=== PATIENT | male | born 1970 | race Caucasian/White ===

== ENCOUNTER 2017-08-28 17:00 | Inpatient (IN) ==
[2017-08-28] MEDS ORDERED: Heparin 10,000 UNITS/10 ML Vial (for IV use) IV.PUSH STA (17:58)
[2017-08-28] MEDS ORDERED: Sod Chloride 0.9% Inj 1,000 ML IV.SIG SCH (18:00)
--- NOTE | 2017-08-28 18:08 | ED ---
HPI General Chief complaint: Chest Pain Stated complaint: chest pain/passed out/arm tingling Time Seen by Provider: 08/28/17 17:58 History of Present Illness HPI narrative: Patient is a 46-year-old 2 pack per day smoker history of hypertension on lisinopril presents emergency department with intermittent chest discomfort since about 1330 this afternoon. 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 His came to get him and brought him to the emergency department. Patient initially brought in through the waiting room, an EKG was performed and was handed to me which did show inferior OR and a STEMI alert was activated. Patient does not have a ranger aide, has never had a cardiac catheterization before. No recent surgeries. No history of diabetes or hyperlipidemia peer Onset (ago): hour(s) Location: chest Radiation: non-radiation Quality: other (Heavy) Associated symptoms: other (Loss of consciousness, diaphoresis) Related Data Allergies Allergy/AdvReac Type Severity Reaction Status Date / Time No Known Allergies Allergy Unverified 08/28/17 17:44 Review of Systems Except as stated in HPI: all other systems reviewed are negative [facility] Medical History Medical History Hypertension (Acute) Obesity (Acute) Social History Social History Substance History: No History of Abuse Second Hand Smoke Exposure: No Smoking Status: Heavy tobacco smoker Tobacco Type: Cigarettes How Often Do You Have a Drink Containing Alcohol: Never Recent Travel in [facility] within the Last 8 Weeks: No Recent Out of Country Travel within the Last 8 Weeks: No Exam Narrative Exam Narrative: GENERAL: Well-developed well-nourished no obvious distress, morbidly obese. SKIN: Focused skin assessment warm/clammy. HEAD: Atraumatic. Normocephalic. EYES: Pupils equal and round. No scleral icterus. No injection or drainage. ENT: No nasal bleeding or discharge. Mucous membranes pink and moist. NECK: Trachea midline. No JVD. CARDIOVASCULAR: Regular rhythm. No murmur appreciated. 2+ bilateral equal pulses in all 4 extremities, no murmurs gallops or rubs. Mildly tachycardic peer RESPIRATORY: No accessory muscle use. Clear to auscultation. Breath sounds equal bilaterally. GASTROINTESTINAL: Abdomen soft, non-tender, nondistended. Hepatic and splenic margins not palpable. MUSCULOSKELETAL: No obvious deformities. No clubbing. No cyanosis. No edema. NEUROLOGICAL: Awake and alert. No obvious cranial nerve deficits. Motor grossly within normal limits. Normal speech. PSYCHIATRIC: Appropriate mood and affect; insight and judgment normal. Course Hospital Course: Patient room emergently, at 1803 Dr. Engel was consulted I spoke to him directly and he is in route, patient ready to roll to the Automation Technician at 1807. Full dose aspirin was given, 7000 units of heparin, reviewed his chest x-ray which does show cardiomegaly. Hemodynamically he is very hypertensive nitroglycerin was given sublingually, oxygen started. he states currently he is chest pain-free peer Initial Documented Vital Signs Temperature 97.7 F 08/28/17 17:36 Pulse Rate 109 H 08/28/17 17:36 Respiratory Rate 20 08/28/17 17:36 Blood Pressure 194/120 H 08/28/17 17:36 Pulse Oximetry 98 08/28/17 17:36 Last Documented Vital Signs Temperature 97.7 F 08/28/17 17:36 Pulse Rate 109 H 08/28/17 17:36 Respiratory Rate 20 08/28/17 17:36 Blood Pressure 194/120 H 08/28/17 17:36 Pulse Oximetry 98 08/28/17 18:12 Critical Care Time Critical Care Time: Yes Total Critical Care Time: 35 Attestation: Aggregate critical care time was 35 minutes. Time to perform other separately billable procedures was not included in the critical care time. My time did not include minutes spent treating any other patients simultaneously or on activities that did not directly contribute to the patient's treatment. The services I provided to this patient were to treat and/or prevent clinically significant deterioration that could result in: , disability, organ failure I provided critical care services requiring my management, as noted below: Chart data review, documentation time, medication orders and management, vital sign assessments/reviewing monitor data, ordering and reviewing lab tests, ordering and interpreting/reviewing x-rays and diagnostic studies, care of the patient and discussion of the patient with the admitting physicians. Medical Decision Making MDM Narrative Medical decision making narrative: MDM: High, EKG shows significant ST elevations in 2 3 and aVF with reciprocal depressions in V1 and V2. There are Q waves starting to form in the inferior leads as well. He actually appears fairly comfortable. 1827: Cath team assembled, Patient rolling to chemistry lab instructor. Differential Diagnosis Differential Diagnosis: Acute STEMI, dissection unlikely, thoracic aneurysm unlikely, congestive heart failure unlikely. Lab Data Result diagrams: 08/28/17 18:00 08/28/17 18:00 Discharge Plan Discharge Disposition Patient Disposition: 30 Still Patient Physicians Team ED Provider: Denis Valenzuela Primary Care Provider: Darren Bear Discharge Instructions Patient Printed Instructions: Chest Pain (ED) Discharge Interventions Interventions: Vital Signs Last Done: 08/28/17 17:36 Status ED Status: With Doctor
[2017-08-28] MEDS ORDERED: Heparin/NS PF Inj 500 ML ONE (18:09)
[2017-08-28] MEDS ORDERED: Heparin 10,000 UNITS/10 ML Vial (for IV use) ONE (18:10)
[2017-08-28] MEDS ORDERED: fentaNYL Citrate Inj 100 MCG/2 ML Ampul ONE (18:10)
[2017-08-28 18:33] LABS: Baso # (Auto) 0.1 th/mm3 (0.0-0.2); Baso % (Auto) 0.7 % (0.0-2.0); Eos % (Auto) 0.1 % (0.0-4.0); Hematocrit 50.3 % (39.0-51.0); Hemoglobin 17.5 gm/dL (13.0-17.0); Lymph # (Auto) 2.1 th/mm3 (1.0-4.8); Lymph % (Auto) 17.6 % (9.0-44.0); Mean Corpuscular HGB Conc 34.7 % (32.0-36.0); Mean Corpuscular Hemoglobin 31.6 pg (27.0-34.0); Mean Platelet Volume 10.4 fL (7.0-11.0); Mono # (Auto) 0.5 th/mm3 (0.0-0.9); Mono % (Auto) 4.3 % (0.0-8.0); Neut # (Auto) 9.3 th/mm3 (1.8-7.7); Neut % (Auto) 77.3 % (16.0-70.0); Platelet Count 171 th/mm3 (150-450); Red Blood Count 5.53 mil/mm3 (4.50-5.90); Red Cell Distribution Width 13.7 % (11.6-17.2)
[2017-08-28] MEDS ORDERED: Lidocaine PF 1% Inj 30 ML Vial ONE (18:39)
--- NOTE | 2017-08-28 18:39 | XR ---
EXAM DATE: 08/28/2017 6:21 PM EDT AGE/SEX: 46 years / Male INDICATIONS: Code STEMI. Chest pain. CLINICAL DATA: This is the patient's initial encounter. Patient reports that signs and symptoms have been present for 1 day and indicates a pain score of 9/10. MEDICAL/SURGICAL HISTORY: None. None. COMPARISON: No prior exams available for comparison. FINDINGS: The heart is mildly prominent. The pulmonary vascular pattern is normal. The lungs are clear. CONCLUSION: 1. Mild cardiomegaly. 2. No pulmonary vascular congestion or focal pulmonary infiltrate. Electronically signed by: Denis Dow MD 08/28/2017 6:38 PM EDT
[2017-08-28 18:42] LABS: Activated Partial Thrombo Time 28.2 sec (24.3-30.1); Prothrombin Time 9.8 sec (9.8-11.6)
[2017-08-28] MEDS ORDERED: Cangrelor Inj 50,000 MCG Vial ONE (18:57)
[2017-08-28 19:08] LABS: Calcium 8.7 mg/dL (8.5-10.1); Carbon Dioxide 23.5 meq/L (21.0-32.0); Magnesium 2.1 mg/dL (1.5-2.5)
[2017-08-28 19:09] LABS: Potassium 5.2 meq/L (3.5-5.1)
[2017-08-28 19:22] LABS: Creatine Kinase MB 17.1 ng/mL (0.5-3.6)
[2017-08-28] MEDS ORDERED: Lidocaine 1% Inj 50 ML Vial INFILTRATN PRN (19:22)
[2017-08-28] MEDS ORDERED: Misc Info for Pharmacy OTHER STA (19:22)
[2017-08-28] MEDS ORDERED: Acetaminophen 325 MG Tablet PO PRN (19:22)
[2017-08-28] MEDS ORDERED: Sodium Chlor 0.9% Inj 250 ML IV.SIG ONE (19:22)
[2017-08-28] MEDS ORDERED: Bacitracin Oint 0.9 GM Packet TOPICAL ONE (19:22)
[2017-08-28] MEDS ORDERED: Atropine Inj 1 MG/ML Vial IV.PUSH PRN (19:22)
[2017-08-28] MEDS ORDERED: Heparin Drip 25,000 UNIT/250 ML BAG IV.CONT PRN (19:27)
--- NOTE | 2017-08-28 19:33 | CATHPROC ---
[employer] HIS Report Study Information Study Number Admission Scheduled Start Study Start [id number] Aug 28 2017 5:00PM 08/28/2017 Aug 28 2017 6:15PM [place] [facility] Cardiac Catheterization Admit Source Facility Department Emergency department [facility] - Building Carpenter Physician and Clinical Staff Initial Ti Howell Medical Charge Entry Specialist Bela Martinez,RN Medical Charge Entry Specialist Bela Pan,RT(R) Other Chikis Oliveros,TRAE Recorder Daiana Cornelius ,SHARONN Scrub Mery Acosta,MANAGER RISK MANAGEMENT TECH2 Procedures Performed Procedure Location (Site) Vessel Name Coronary Angiograms LCA Left Coronary Coronary Angiograms RCA Right Coronary L Heart Cath Pacemaker Temp Fem Vein (right) Femoral Vein PTCA RCA Dist Right Coronary PTCA RCA Mid Right Coronary Stent RCA Mid Right Coronary Wire insertion Radial (right) Radial Art. Equipment Time Furniture Technician Description Size Mfg Part Number Used/Scraped COPILOT VALVE, BLEEDBACK [id number] 18:45 [employer] Used CONTROL *[id number] CATHETER, FR5 SWAN ROCÍO 18:54 PERDOMO LINDSEY FR 5 [id number] *[id number] Used MONITOR [id number] 18:53 PER[employer] LINDSEY PACING CATHETER J CURVE FR 5 Used *[id number] TRANSDUCER, TRUWAVE [id number] 18:43 PERDOMO LINDSEY * Used W/STOCKCOCK *[id number] 19:17 [facility] MEDICAL VASCADE, FR5 CLOSURE SYSTEM FR 5 Used *[id number] *[id number] [id number] *[id number] [id number] *[id number] *[id number] 18:43 [employer] BLANKET,WARM AIR CCL * Used *[id number] 18:43 [employer] PACK, CCL CUSTOM * Used *[id number] 18:43 [employer] SUPPORT, ARTERIAL ADULT 63437 *[id number] Used [id number] 18:43 [employer] PACER PEN, SKIN DUAL W/ RULER * Used *[id number] 18:55 [employer] BALLOON, 2.5 X 15MM EUPHORA 15MM Used *[id number] 19:08 [employer] STENT, 3.0 30 INTEGRITY 3.0 30 Used *[id number] 19:13 [employer] STENT, 3.0 30 INTEGRITY 3.0 30 Used *5642606 [id number] 18:59 [employer] MEDICAL 30 RAY INDEFLATOR Used *[id number] BAND, RADIAL COMPRESSION TR [id number] 19:23 [employer] MEDICAL 29CM Used LARGE 29 *[id number] SHEATH, FR6 RADIAL PRELUDE 18:43 [employer] MEDICAL FR 6 [id number] Used EASE 11CM [id number] 18:43 [employer] WIRE, EXCHANGE 260CM 3MMJ 260CM Used *[id number] 18:43 [employer] MANIFOLD, 4 PORT * Used *[id number] 18:43 [employer] OMNIPAQUE, 350 MG, 150ML 150ML [id number] Used 18:48 [employer] OMNIPAQUE, 350 MG, 50ML 50ML [id number] Used CATHETER, FR4 SPIROFLEX [id number] 19:06 [employer] FR 4 Used ANGIOJET RX *[id number] 18:51 [email or web address] MEDICAL SHEATH, FR5 TERUMO (10CM) FR 5 Used *[id number] WIRE, RUNTHROUGH NS FLOPPY 25-1011 18:45 [employer] MEDICAL 180CM Used .014 180CM *[id number] Equipment Model, Serial, Lot Number and Expiration Data Description Model Number Serial Number Lot Number Expiration Date BAND, RADIAL COMPRESSION TR [id number] 06-22-2020 LARGE 29 STENT, 3.0 30 INTEGRITY [id number] 06-10-2019 STENT, 3.0 30 INTEGRITY [id number] 03-11-2019 History: Allergies Allergy Reaction No Known Allergies History: Risk Factors Family History of Hypertension Dyslipidemia Previous KS Previous Heart Failure Premature CAD No No No No No Prior Valve Prior PCI Prior CABG Surgery No No No Cerebrovascular Peripheral Artery Chronic Lung On Dialysis Diabetes Disease Disease Disease No No No No No Labs Hgb (g/dl) Hct (%) 11.60-17.00 35.00-51.00 17.7 52 Glucose (mg/dl) BUN (mg/dl) Creatinine (mg/dl) BUN:Creatinine (1:x) 74.00-106.00 7.00-18.00 0.50-1.30 10.00-20.00 108 15 1.0 15 Na (meq/l) K (meq/l) 136.00-145.00 3.50-5.10 139 5.3 CPK-MB (ng/ML) 0.50-3.60 Not Drawn Medication Medication Total Dose (Bolus/Oral) Medication Total Dosage/Unit 1% XYLOCAINE 30 mL ASPIRIN 324 mg FENTANYL 50 mcg HEPARIN 39268 units NTG (IC) 200 mcg RADIAL COCKTAIL 2 mL (Bolus) VERSED 2 mg ZOFRAN 4 mg Medications (Bolus/Oral) Medication Time Given Dosage/Unit Administered By Reason HEPARIN 08/28/2017 6:27:14 PM 7000 units 7000 units HEPARIN given pre op via Peripheral IV. prior to track laborer 1% XYLOCAINE 08/28/2017 6:41:56 PM 10 mL Ti Engel 10 mL 1% XYLOCAINE given in lab by Ti Engel via Subcutaneous. Ordered by Ti Engel. VERSED 08/28/2017 6:41:58 PM 2 mg Bela Martinez 2 mg VERSED given in lab by Bela Martinez, TRAE via Peripheral IV. Ordered by Ti Engel. FENTANYL 08/28/2017 6:42:15 PM 50 mcg Bela Martinez 50 mcg FENTANYL given in lab by Bela Martinez, TRAE via Peripheral IV. Ordered by Ti Engel. RADIAL COCKTAIL 08/28/2017 6:43:53 PM 2 mL (Bolus) Ti Engel 2 mL (Bolus) RADIAL COCKTAIL given in lab by Ti Engel via Radial. Using [Solution Name]. Ordere d by Ti Engel. Ntg 200mcg 1% XYLOCAINE 08/28/2017 6:52:03 PM 20 mL Ti Engel 20 mL 1% XYLOCAINE given in lab by Ti Engel in Right Groin via Subcutaneous. Ordered by Ti Engel. HEPARIN 08/28/2017 6:55:15 PM 5000 units Bela Martinez 5000 units HEPARIN given in lab by Bela Martinez, TRAE via Peripheral IV. Ordered by Ti Engel. NTG (IC) 08/28/2017 7:03:42 PM 200 mcg Ti Engel 200 mcg NTG (IC) given in lab by Ti Engel via Intra-coronary. Ordered by Ti Engel. ZOFRAN 08/28/2017 7:06:09 PM 4 mg Chikis Oliveros 4 mg ZOFRAN given in lab by Chikis Oliveros, TRAE via Central IV. Ordered by Ti Engel. ASPIRIN 08/28/2017 7:09:28 PM 324 mg Chikis Oliveros 324 mg ASPIRIN given in lab by Chikis Oliveros, RN via Subcutaneous. Ordered by Ti Engel. in er Medication (Drip) Medication Time Given Dosage/Unit Concentration/Unit Diluent (ml) Solution IV Solutions 08/28/2017 6:39:17 PM 50 mL (IV) NaCl .9 IV Solutions given via Peripheral IV. Pump/Drip Flow using NaCl .9. at O KENGREAL BOLUS 08/28/2017 7:00:19 PM 17 mL 17 mL KENGREAL BOLUS given in lab by Chikis Oliveros, TRAE via Peripheral IV. Ordered by Ti Engel . KENGREAL DRIP 08/28/2017 7:02:07 PM 4 mcg/kg/min 50 mg 250 NaCl .9 4 mcg/kg/min KENGREAL DRIP given in lab by Chikis Oliveros, TRAE via Peripheral IV. Pump/Drip Flow = 13 8.72 ml/hr using NaCl .9 with a concentration of 50 mg in 250 ml. Ordered by Ti Engel. Initial Case Assessment Cardiovascular HR Rhythm NIBP Chest Pain 83 sr 144/105 0 Edema Present Skin color Skin None Normal Warm Dry Circulatory - Right Pulses Dorsalis Pedis Femoral Radial 3 2 2 Scale (0,1,2,3,4,d) Circulatory - Left Pulses Dorsalis Pedis Femoral Radial 3 Scale (0,1,2,3,4,d) Circulatory - Lower Extremities Color Lower Right Color Lower Left Normal Normal Neurological State Oriented to time-place- Alert Moves all extremities person Respiration - General Respiration Rate SpO2 (%) O2 (lpm) (B/min) 17 95 2 Final Case Assessment Cardiovascular HR Rhythm NIBP Chest Pain 70 reg 125/87 0 Edema Present Skin color Skin None Normal Warm Circulatory - Right Pulses Dorsalis Pedis Femoral Radial 3 2 2 Scale (0,1,2,3,4,d) Circulatory - Left Pulses Dorsalis Pedis Femoral Radial 3 Scale (0,1,2,3,4,d) Circulatory - Lower Extremities Color Lower Right Color Lower Left Normal Normal Neurological State Oriented to time-place- Alert Moves all extremities person Respiration - General Respiration Rate SpO2 (%) O2 (lpm) (B/min) 12 97 2 Chronological Log Time Study Chronological Log 18:25:22 Emergency Room notified that Building Carpenter is ready. 18:25:44 MD arrived. 18:27:14 7000 units HEPARIN given pre op via Peripheral IV. prior to track laborer 18::33 Patient arrived via Bed. 18:32:33 Patient Name, D.O.B, / Armband Verified By R.N. 18:32:35 Consent signed by the physician and the patient and verified by the [facility] staff. 18:32:36 Pre-op and post- op instructions given; patient acknowledges understanding of instructions. 18:32:39 Patient has been NPO for More than 6Hrs. 18:32:42 Skin Breakdown- none per patient Vitals capture started with the following parameters, Patient=Adult, Interval=5 min, Initial Pr ajyjga=547 mmHg, 18:38:25 Deflation Rate=5 mmHg, Cuff placed on Right Arm 18:38:36 Reference ECG taken 18:38:54 A # 20 IV was noted in the Antecubital (right). Grade = 0 18:39:01 HR=86 bpm, AITL=202/105 mmhg, SpO2=97.0 %, Resp=12 B/min, Pain=0, Vladislav=10, Serrano=2 18:39:10 A # 20 IV was noted in the Antecubital (left). Grade = 0 18:39:17 IV Solutions given via Peripheral IV. Pump/Drip Flow using NaCl .9. at [facility] Assessment: Initial Case, HR=83 BPM, Rhythm=sr, EEGY=992/105 mmhg, Chest Pain=0, Edema=None, [place]=Normal, Skin = Warm, Dry Right Pulses: Selvin Ped=3, Femoral=2, Radial=2 Left Pulses: Selvin Ped=3 18:39:43 Lower Right Extremities: Color=Normal Lower Left Extremities: Color=Normal Neurological: State=Alert, Ox3, SMART Respiration: Resp=17 B/min, SpO2=95 %, O2=2 lpm 18:40:35 Right Radial and groin(s) prepped with 2% chlorhexidine, and draped after a 3 min. waiting time. Time Out. Correct patient, correct procedure, correct physician, labs, allergies, and equipment verified with track laborer 18:40:56 team present. Fire risk assesment completed (see hard stop sheet for coding). Time Out Conc urred by and individual staff in procedure. 18:41:00 Case Start 18:41:56 10 mL 1% XYLOCAINE given in lab by Ti Engel via Subcutaneous. Ordered by Tran Engel en. 18:41:58 2 mg VERSED given in lab by Bela Martinez, RN via Peripheral IV. Ordered by Ti Engel . 18:42:15 50 mcg FENTANYL given in lab by Bela Martinez, RN via Peripheral IV. Ordered by Pro Engel phen. 18:42:23 Reference ECG taken 18:43:15 Pressure channel 1 zeroed. 18:43:29 Access site was Right Radial Artery. A SHEATH, FR6 RADIAL PRELUDE EASE 11CM FR 6 was advanced into the Radial (right) using the Perc utaneous 18:43:41 technique. 2 mL (Bolus) RADIAL COCKTAIL given in lab by Ti Engel via Radial. Using [Solution Name]. Ordered by Toro 18:43:53 Ti. Ntg 200mcg 18:44:10 GO=192 bpm, WABE=282/49 mmhg, SpO2=96 %, Resp=19 B/min, Pain=0, Vladislav=10, Serrano=2 A JL 3.5 INFINITI CATHETER FR 5 was advanced over a wire. OMNIPAQUE, 350 MG, 150ML 150ML was us ed for 18:45:44 injections. 18:46:58 The LCA was injected and visualized at various angles. OMNIPAQUE, 350 MG, 150ML 150ML used . Recorded Pressure: Ao, HR=97, Condition=Condition 1 18:47:20 (Aorta) Ao 129/94/111 18:48:59 HR=99 bpm, GXVK=772/103 mmhg, SpO2=96.0 %, Resp=14 B/min, Pain=0, Vladislav=10, Serrano=2 After removing the current catheter a JR 5.0 GUIDE CATHETER FR 6 was advanced over a WIRE, EXCH ROBER 260CM 18:50:05 3MMJ 260CM. 18:50:43 The RCA was injected and visualized at various angles. OMNIPAQUE, 350 MG, 150ML 150ML used . 18:52:03 20 mL 1% XYLOCAINE given in lab by Ti Engel in Right Groin via Subcutaneous. Ordered by Ti Engel. 18:53:54 Access site was Right Femoral Vein. 18:54:02 JR=113 bpm, GKLZ=803/99 mmhg, SpO2=98.0 %, Resp=11 B/min A CATHETER, FR5 SWAN ROCÍO MONITOR FR 5 was advanced to the right ventricle. Rate = 60, Output = ~OUTPUT~, 18:54:13 MA = 5. 18:54:55 Lead placement verified under fluoroscopy 18:55:15 5000 units HEPARIN given in lab by Bela Martinez RN via Peripheral IV. Ordered by Ti Engel. A JR 5.0 GUIDE CATHETER FR 6 was advanced over a wire. OMNIPAQUE, 350 MG, 150ML 150ML was used for 18:55:17 injections. 18:56:45 A WIRE, RUNTHROUGH NS FLOPPY .014 180CM 180CM was inserted via Radial (right). 18:57:49 Interventional wire has crossed the lesion-reperfusion A BALLOON, 2.5 X 15MM EUPHORA 15MM was inserted over WIRE, RUNTHROUGH NS FLOPPY .014 180CM 180C M via 18:58:36 the Radial (right). A BALLOON, 2.5 X 15MM EUPHORA 15MM over a WIRE, RUNTHROUGH NS FLOPPY .014 180CM 180CM in the RC A Mid 18:58:45 was inflated using a 30 RAY INDEFLATOR at 8 ray for 10 sec. 18:58:59 TX=503 bpm, KAOP=454/100 mmhg, SpO2=98.0 %, Resp=17 B/min A BALLOON, 2.5 X 15MM EUPHORA 15MM over a WIRE, RUNTHROUGH NS FLOPPY .014 180CM 180CM in the RC A Mid 18:59:06 was inflated using a 30 RAY INDEFLATOR at 8 ray for 5 sec. A BALLOON, 2.5 X 15MM EUPHORA 15MM over a WIRE, RUNTHROUGH NS FLOPPY .014 180CM 180CM in the RC A Mid 18:59:34 was inflated using a 30 RAY INDEFLATOR at 10 ray for 10 sec. 19:00:19 17 mL KENGREAL BOLUS given in lab by Chikis Oliveros, TRAE via Peripheral IV. Ordered by Ti Toney. A BALLOON, 2.5 X 15MM EUPHORA 15MM over a WIRE, RUNTHROUGH NS FLOPPY .014 180CM 180CM in the RC A Dist 19:00:40 was inflated using a 30 RAY INDEFLATOR at 6 ray for 5 sec. A BALLOON, 2.5 X 15MM EUPHORA 15MM over a WIRE, RUNTHROUGH NS FLOPPY .014 180CM 180CM in the RC A Dist 19:00:46 was inflated using a 30 RAY INDEFLATOR at 6 ray for 5 sec. A BALLOON, 2.5 X 15MM EUPHORA 15MM over a WIRE, RUNTHROUGH NS FLOPPY .014 180CM 180CM in the RC A Dist 19:01:07 was inflated using a 30 RAY INDEFLATOR at 6 ray for 5 sec. A BALLOON, 2.5 X 15MM EUPHORA 15MM over a WIRE, RUNTHROUGH NS FLOPPY .014 180CM 180CM in the RC A Dist 19:01:18 was inflated using a 30 RAY INDEFLATOR at 6 ray for 5 sec. 4 mcg/kg/min KENGREAL DRIP given in lab by Chikis Oliveros RN via Peripheral IV. Pump/Drip Michael w = 138.72 ml/hr 19:02:07 using NaCl .9 with a concentration of 50 mg in 250 ml. Ordered by Ti Engel. 19:03:42 200 mcg NTG (IC) given in lab by Ti Engel via Intra-coronary. Ordered by Tran Engel. 19:04:35 HR=96 bpm, WCRN=745/90 mmhg, SpO2=99.0 %, Resp=8 B/min, Pain=0, Vladislav=10, Serrano=2 19:06:09 4 mg ZOFRAN given in lab by Chikis Oliveros, TRAE via Central IV. Ordered by Ti Engel. 19:06:27 Balloon Removed. A CATHETER, FR4 SPIROFLEX ANGIOJET RX FR 4 was advanced over a wire. OMNIPAQUE, 350 MG, 50ML 50 ML was 19:07:01 used for injections. 19:07:37 thrombectomy in progress 19:08:16 Catheter was removed 19:08:25 The RCA was injected and visualized at various angles. OMNIPAQUE, 350 MG, 150ML 150ML used . 19:09:03 HR=98 bpm, NIBP=96/56 mmhg, SpO2=98.0 %, Resp=12 B/min, Pain=0, Vladislav=10, Serrano=2 19:09:28 324 mg ASPIRIN given in lab by Chikis Oliveros RN via Subcutaneous. Ordered by Evan Engel. in er An STENT, 3.0 30 INTEGRITY 3.0 30 Bare Metal Stent was inserted through a XBRCA .070 GUIDE CATH ETER FR 6 19:09:53 over a WIRE, RUNTHROUGH NS FLOPPY .014 180CM 180CM. A STENT, 3.0 30 INTEGRITY 3.0 30 was deployed using a 30 RAY INDEFLATOR at 16 atmospheres for 1 0 seconds in 19:10:23 the RCA Mid. 19:10:58 Re-inflated the stent balloon in the RCA Prox to 8 RAY for 10 seconds. 19:11:30 Delivery device removed An STENT, 3.0 30 INTEGRITY 3.0 30 Bare Metal Stent was inserted through a XBRCA .070 GUIDE CATH ETER FR 6 19:12:41 over a WIRE, RUNTHROUGH NS FLOPPY .014 180CM 180CM. A STENT, 3.0 30 INTEGRITY 3.0 30 was deployed using a 30 RAY INDEFLATOR at 18 atmospheres for 5 seconds in the 19:13:41 RCA Mid. 19:14:23 The RCA was injected and visualized at various angles. OMNIPAQUE, 350 MG, 150ML 150ML used . 19:14:40 Wire removed 19:15:18 HR=90 bpm, PJTS=096/44 mmhg, SpO2=98.0 %, Resp=12 B/min, Pain=0, Vladislav=10, Serrano=2 19:15:19 Catheter was removed 19:16:09 temp pacemaker discontinued per physician Assessment: Final Case, HR=70 BPM, Rhythm=reg, ZYUC=956/87 mmhg, Chest Pain=0, Edema=None, [place] r=Normal, Skin = Warm Right Pulses: Selvin Ped=3, Femoral=2, Radial=2 Left Pulses: Selvin Ped=3 19:19:02 Lower Right Extremities: Color=Normal Lower Left Extremities: Color=Normal Neurological: State=Alert, Ox3, SMART Respiration: Resp=12 B/min, SpO2=97 %, O2=2 lpm 19:19:26 HR=81 bpm, TEUR=206/87 mmhg, SpO2=97.0 %, Resp=13 B/min, Pain=0, Vladislav=10, Serrano=2 19:19:38 Catheter(s) removed without difficulty 19:19:40 VASCADE, FR5 CLOSURE SYSTEM FR 5 placement in the Fem Vein (right) 19:20:08 Case End (Physician broke scrub) 19:20:11 No case complications noted. 19:20:11 Cine recording checked. 19:20:17 Bedside Report will be given. 19:20:18 Implantable Device card placed in patient's chart. 19:20:27 A Left Heart Cath was performed. 19:24:00 HR=83 bpm, QDBD=256/86 mmhg, SpO2=94 %, Resp=17 B/min, Pain=4, Vladislav=10, Serrano=2 Radial Compression Device Used. 12 mLs of air placed in BAND, RADIAL COMPRESSION TR LARGE 29 2 9CM. Affected 19:26:49 hand 100 % O2 saturation. 19:28:41 Clinical correlaton risk stratification. 19:29:08 HR=79 bpm, OYYT=048/85 mmhg, SpO2=99.0 %, Resp=15 B/min, Pain=0, Vladislav=10, Serrano=2 End Study - Contrast Media Used In Study Contrast Total Opened (mL) Total Used (mL) Total Wasted (mL) Omnipaque 100 100 0 End Study - Maximum Contrast Load Max Contrast Load (mL) 578.0 End Study - Radiation Exposure Fluoro Time (minutes) 6.8 End Study - Sheaths Sheaths Pulled By Sheath Hold Time (min) Mery Acosta 2 End Study - Patient Disposition Complications Transferred To Interventional Outcome No Telemetry Bed successful
[2017-08-28 19:34] LABS: CKMB Percent 4.3 % (0.0-4.0); Troponin I 3.04 ng/mL (0.02-0.05)
--- NOTE | 2017-08-28 19:46 | MB ---
cc: Ti Engel MD, Stephen E MD DATE: 08/28/2017 REASON FOR CONSULTATION: Chest pain, ST elevation MO. HISTORY OF PRESENT ILLNESS: This is a 46-year-old male with a history of hypertension and tobacco abuse who presented to the emergency department with acute onset of substernal chest pain. The patient describes a midsternal discomfort with associated nausea, diaphoresis and shortness of breath. Electrocardiogram showed inferior ST elevation myocardial infarction. Protocol was initiated. PAST MEDICAL HISTORY: Hypertension, obesity, tobacco abuse. SOCIAL HISTORY: Heavy tobacco user, a pack to 2 packs a day for many years. No drugs or alcohol. FAMILY HISTORY: Denies any family history of early cardiac disease or sudden cardiac . REVIEW OF SYSTEMS: A 12-point review of systems was performed, negative except unless otherwise noted in the present illness. PHYSICAL EXAMINATION: VITAL SIGNS: Heart rate 81, blood pressure 115/85 mmHg. GENERAL: Alert and oriented x 3, in moderate distress. HEENT: Shows pupils reactive to light and accommodation, extraocular movements intact. No elevation in jugular venous distention. No thyromegaly. No lymphadenopathy, no carotid bruits. LUNGS: Clear to auscultation bilaterally. CARDIOVASCULAR: Regular rate and rhythm without murmurs, rubs or gallops. ABDOMEN: Nontender, nondistended with good bowel sounds. No hepatosplenomegaly. EXTREMITIES: Show no cyanosis or edema. Good peripheral pulses. NEUROLOGIC: Cranial nerves intact. Motor, sensory grossly intact. LABORATORY DATA: WBC 12.1, hemoglobin 17.5, platelet count is 171. INR is 1.0. Sodium 139, potassium 5.3, chloride 108, bicarbonate is 23, BUN is 11, creatinine is 1.09. CARDIOLOGY STUDIES: Electrocardiogram: Inferior ST elevation. ASSESSMENT: 1. ST elevation myocardial infarction. 2. Tobacco abuse. 3. Hypertension. PLAN: The patient will be brought emergently to the cardiac catheterization lab for attempted revascularization. Risks, benefits, and alternatives discussed with the patient. The patient understood and consented to proceed. MD HECTOR Bird/SA , 07:32 PM , 07:44 PM
--- NOTE | 2017-08-28 19:56 | MA ---
cc: Ti Engel MD, Stephen E MD DATE: 08/28/[address]ICATION: ST elevation myocardial infarction. PROCEDURES PERFORMED: 1. Fluoroscopy with interpretation. 2. Coronary angiography. 3. Percutaneous coronary intervention with bare metal stent to the mid right coronary artery. 4. Rheolytic thrombectomy of the right coronary artery. 5. Temporary transvenous pacemaker placement. METHOD: Risks, benefits and alternatives discussed with the patient. The patient understood and consented to proceed. DESCRIPTION OF PROCEDURE: The patient was brought to the cardiac catheterization lab placed on the cardiac catheterization table. The right wrist was prepped and draped in sterile fashion. The right wrist was anesthetized with 2% lidocaine. The right radial artery was cannulated and a 6-Irish 7 cm sheath was placed without difficulty. CORONARY ANGIOGRAPHY: 1. Left main coronary has a distal 70% stenosis. 2. Left anterior descending coronary gives rise to a high diagonal branch, moderate caliber size with moderate diffuse disease proximally. The proximal left anterior descending coronary has a 40% stenosis throughout, moderate calcium present. There is a large diagonal and distal LAD itself, which has mild luminal irregularities. 3. Left circumflex gives rise to a very large first obtuse marginal branch with several sub-branches. There is mild to moderate plaque present. No high-grade obstruction. 4. Right coronary has 100% occlusion in the mid segment. TEMPORARY TRANSVENOUS PACEMAKER PLACEMENT: A 5-Irish 11 cm sheath was placed in the right femoral vein. A 5-Irish balloon tipped temporary transvenous pacemaker advanced to the right ventricular apex under fluoroscopic guidance. Appropriate pacing and capture was confirmed. Pacing was utilized throughout the procedure. PERCUTANEOUS INTERVENTION: Cardiothoracic surgery, Dr. Dorado was called emergently. Dr. Dorado was not available. The patient was in the midst of an ST elevation myocardial infarction. We elected to proceed with attempted revascularization with a planned staged coronary bypass surgery. Bare metal stenting if necessary would be utilized. Right coronary was selectively engaged. A 6-Irish XB RCA guide catheter 0.014 inch, 180 cm Terumo run through wire was navigated down the distal posterior descending branch. A 2.5 x 15 mm balloon was deployed at 4 sequential inflations. Repeat angiography showed CARLOS 1 flow with heavy thrombotic burden. A 4-Irish power flex AngioJet catheter was then advanced over the wire. A rheolytic thrombectomy performed in the distal to mid right coronary artery. The patient utilized pacing. Repeat angiography now showed severe residual stenosis in the mid segment but CARLOS 3 flow. A 3.0 x 30 mm RX Integrity bare-metal stent was deployed in the mid to distal segment, followed by 3.0 x 26 mm Integrity bare-metal stent in the mid segment. Repeat angiography showed CARLOS 3 flow, no residual stenosis. Sheath was removed. Venous sheath was removed. Arterial sheath had a HemoBand applied. Kangalor and heparin were administered throughout the entire procedure to maintain appropriate anticoagulation. No Plavix, Brilinta or Effient was administered. PLAN: Kangalor for 2 hours followed by heparin drip and CT surgical consultation for consideration of staged bypass surgery in the next few days. MD HECTOR Bird/ , 07:36 PM , 07:54 PM KWAKU
--- NOTE | 2017-08-28 20:13 | P.CONCC ---
History of Present Illness Primary Care Provider: Darren Bear DO History of Present Illness: 46-year-old very pleasant gentleman who smokes 2 pack per day, also history of hypertension on lisinopril presents with intermittent chest discomfort since about 1330 this afternoon. Patient states initially felt like heartburn, he took a Goody's powder and then to [facility] [employer]. 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 His came to get him and brought him to the emergency department. Patient initially brought in through the waiting room, an EKG was performed showed inferior CT and a STEMI alert was activated. The patient was emergently taken to cardiac catheterization lab by Dr. Engel showed 70% occlusion of left main and thrombotic occlusion of RCA. Patient is now admitted to ICU awaiting CABG. Review of Systems Constitutional: Denies anorexia, Denies body ache(s), Denies chills, Denies daytime sleepiness, Denies excessive sweating, Denies fatigue, Denies fever(s), Denies headache(s), Denies increased appetite, Denies lack of energy, Denies malaise, Denies night sweats, Denies weakness, Denies weight gain, Denies weight loss, Denies other Eyes: Denies blind spots, Denies blurry vision, Denies bulging eyes, Denies change in vision, Denies double vision, Denies discharge, Denies dry eyes, Denies floaters, Denies irritation, Denies itchy eyes, Denies loss of vision, Denies pain, Denies requires corrective lenses, Denies sensitivity to light, Denies other Ears, Nose, Mouth, and Throat: Denies abnormal hearing, Denies bleeding gums, Denies bad breath, Denies change in voice, Denies dental pain, Denies difficulty swallowing, Denies dizziness, Denies dry mouth, Denies ear discharge , Denies ear pain, Denies facial pain, Denies headache(s), Denies hearing loss, Denies hoarseness, Denies lip swelling, Denies nosebleed, Denies mouth lesions, Denies mouth pain, Denies nasal congestion, Denies nasal discharge, Denies nasal obstruction, Denies nasal trauma, Denies neck lump, Denies neck pain, Denies nose pain, Denies pain with swallowing, Denies poor balance, Denies post nasal drip, Denies ringing in the ears, Denies sinus pain, Denies sinus pressure , Denies sore throat, Denies throat swelling, Denies tongue swelling, Denies other Cardiovascular: Reports chest pain, Reports chest pain at rest, Reports chest pain with activity, Reports fainting, Reports shortness of breath, Reports shortness of breath with activity, Denies excessive sweating, Denies fast heart rate, Denies foot swelling, Denies generalized swelling, Denies irregular heart rhythm, Denies leg pain with activity, Denies leg sores, Denies leg swelling, Denies lightheadedness, Denies radiating jaw, neck or arm pain, Denies rapid, pounding, or irregular heartbeat, Denies shortness of breath when lying down, Denies shortness of breath causing sudden awakening, Denies slow heart rate, Denies other Respiratory: Reports shortness of breath, Reports shortness of breath with activity, Denies change in phlegm color, Denies chest congestion, Denies cough, Denies coughing up blood, Denies excessive phlegm production, Denies pain on inspiration, Denies pain with cough, Denies snoring, Denies stridor, Denies wheezing, Denies other Gastrointestinal: Denies abdominal pain, Denies belching, Denies black, tarry stools, Denies bloating, Denies bright, red blood in stools, Denies change in bowel habits, Denies constant urge to pass stool, Denies change in stools, Denies coffee ground vomit, Denies constipation, Denies cramping, Denies difficulty swallowing, Denies excessive passing of gas, Denies feeling full early, Denies heartburn, Denies incontinent of stools, Denies loose stools, Denies nausea, Denies pain with swallowing, Denies vomiting, Denies vomiting blood, Denies other Genitourinary: Denies blood in semen, Denies blood in urine, Denies decreased urination, Denies difficulty urinating, Denies difficulty with ejaculations, Denies erectile dysfunction, Denies genital lesions, Denies genital pain, Denies painful urination, Denies side pain, Denies frequent nighttime urination , Denies painful ejaculations, Denies penile discharge, Denies scrotal swelling , Denies testicle lump, Denies testicle pain, Denies urinary frequency, Denies urinary hesitancy, Denies urinary incontinence, Denies urinary urgency, Denies other Musculoskeletal: Denies abnormal walking, Denies back pain, Denies body aches, Denies decreased muscle mass, Denies deformity, Denies joint pain, Denies joint swelling, Denies limited joint movement, Denies loss of height, Denies muscle cramps, Denies muscle weakness, Denies neck pain, Denies numbness, Denies radiating pain into limb, Denies stiffness, Denies tingling, Denies other Skin/Breast: Denies acne, Denies bleeding lesions, Denies boil, Denies breast swelling, Denies breast skin changes, Denies breast pain, Denies breast lump, Denies change in breast shape, Denies change in hair, Denies change in skin color, Denies changing lesions, Denies dry skin, Denies excessive hair growth, Denies hair loss, Denies itching, Denies lesions, Denies nail changes, Denies new lesions, Denies nipple discharge, Denies non-healing lesions, Denies redness , Denies sensitivity to light, Denies rash, Denies skin pain, Denies skin ulcer , Denies sores, Denies stretch webster, Denies unusual bruising, Denies wounds, Denies yellowing of the skin, Denies other Neurologic: Reports tingling/numbness/burning sensations, Denies abnormal hearing, Denies abnormal movements, Denies abnormal speech, Denies abnormal walking, Denies behavioral changes, Denies burning sensations, Denies confusion , Denies dizziness, Denies fainting, Denies frequent falls, Denies headache(s), Denies lack of coordination, Denies localized weakness, Denies loss of vision, Denies memory loss, Denies numbness, Denies other visual disturbances, Denies radiating pain, Denies restless legs, Denies convulsions, Denies seizure-like activity, Denies sensory deficit, Denies tingling, Denies tremor(s), Denies unsteadiness, Denies weakness, Denies other Psychiatric: Denies abnormal sleep pattern, Denies anxiety, Denies behavioral changes, Denies change in appetite, Denies change in sex drive, Denies confusion , Denies depression, Denies difficulty concentrating, Denies hearing things others do not hear, Denies hopelessness, Denies irritability, Denies lack of enjoyment, Denies memory loss, Denies mood swings, Denies panic attacks, Denies paranoia, Denies seeing things others do not see, Denies sensing things others do not sense, Denies tactile hallucinations, Denies thoughts of hurting/killing others, Denies thoughts of hurting/killing yourself, Denies other Endocrine: Denies cold intolerance, Denies excessive sweating, Denies flushing, Denies heat intolerance, Denies increased hunger, Denies increased thirst, Denies increased urination, Denies rapid, pounding, or irregular heartbeat, Denies other Hematologic/Lymphatic: Denies easy bleeding, Denies easy bruising, Denies enlarged lymph nodes, Denies other Allergic/Immunologic: Denies GI upset with certain foods, Denies hives, Denies itchy eyes, Denies lip swelling, Denies seasonal runny nose, Denies throat swelling, Denies tongue swelling, Denies wheezing, Denies other PMFSH - History History Provided By: Patient - Medical History Medical History: Medical History (Last Updated 08/28/17 @ 18:23 by Katy Mercado) Hypertension Obesity - Tobacco History Second Hand Smoke Exposure: No Tobacco Use In Past 30 Days: Yes (2 PPD) Smoking Status: Heavy tobacco smoker Tobacco Type: Cigarettes - Alcohol History How Often Do You Have a Drink Containing Alcohol: Never - Substance Use History Substance History: No History of Abuse - Travel History Recent Travel in the [place] Within the Last 8 Weeks: No Recent Travel Out of the Country Within the Last 8 Weeks: No - Immunization History Tetanus Immunization: Unsure Hx Influenza Vaccine This Season: No Medications and Allergies Active Medications: Active Medications Acetaminophen (Tylenol) 325 mg PO Q4H PRN PRN Reason: PAIN SCALE 1 TO 2 Aspirin (Aspirin Chew) 81 mg PO DAILY [facility] Atorvastatin Calcium (Lipitor) 40 mg PO HS RHIANNA Atropine Sulfate (Atropine Inj) 0.5 mg IV.PUSH UNSCH PRN PRN Reason: VAGAL REPONSE Sodium Chloride (Ns Inj) 1,000 mls @ 30 mls/hr IV.SIG .Q24H RHIANNA Stop: 08/29/17 17:59 Last Admin: 08/28/17 18:20 Dose: 30 mls/hr Sodium Chloride (Ns Inj) 250 mls @ 500 mls/hr IV.SIG ONCE ONE Stop: 08/28/17 19:51 Heparin Sodium/Dextrose (Heparin/D5w 25,000 U/250 Ml) 25,000 unit in 250 mls @ 0 mls/hr IV.CONT TITRATE PRN; Protocol PRN Reason: Per Protocol Lidocaine HCl (Xylocaine 1% Inj (50 Ml)) 10 ml INFILTRATN UNSCH PRN PRN Reason: SHEATH REMOVAL Stop: 08/29/17 19:21 Lorazepam (Ativan Inj) 0.5 mg IV.PUSH UNSCH PRN PRN Reason: ANXIETY Stop: 08/29/17 19:21 Metoprolol Tartrate (Lopressor) 12.5 mg PO BID RHIANNA Miscellaneous Information (Misc Info For Pharmacy/Read Comments) 0 each OTHER STAT STA Stop: 08/28/17 19:23 Ondansetron HCl (Zofran Inj) 4 mg IV.PUSH Q4H PRN PRN Reason: NAUSEA Oxycodone/Acetaminophen (Percocet 5/325 Mg) 1 tab PO Q4H PRN PRN Reason: PAIN SCALE 3 TO 5 Oxycodone/Acetaminophen (Percocet 10/325 Mg) 1 tab PO Q4H PRN PRN Reason: PAIN SCALE 6 TO 10 Sodium Chloride (Ns Flush) 2 ml IV.FLUSH BID RHIANNA Sodium Chloride (Ns Flush) 2 ml IV.FLUSH PRN PRN PRN Reason: FLUSH AFTER USING IV ACCESS Temazepam (Restoril) 15 mg PO HS PRN PRN Reason: SLEEP Allergies Allergy/AdvReac Type Severity Reaction Status Date / Time No Known Allergies Allergy Unverified 08/28/17 17:44 Home Medications Medication Instructions Recorded Confirmed Type hydrochlorothiazide 08/28/17 History lisinopril 20 mg PO DAILY 08/28/17 08/28/17 History Physical Exam Vital signs: Vital Signs 08/28/17 17:36 08/28/17 18:12 08/28/17 18:25 Temperature 97.7 F Pulse Rate 109 H Respiratory Rate 20 Blood Pressure 194/120 H Pulse Oximetry 98 98 98 Intake & Output 08/28/17 08/28/17 08/29/17 06:59 18:59 06:59 Weight 115.666 kg - Constitutional mild distress - Routine HEENT Exam Head: Present: normocephalic, atraumatic Eye: Present: EOMI, PERRL, normal accommodation ENT: Present: mucous membranes moist - Routine Neck Exam Present: supple, full ROM. Absent: JVD, carotid bruit - Routine Respiratory Exam Absent: accessory muscle use - Routine Cardiovascular Exam Present: RRR, S1, S2 - Routine Abdominal Exam Present: soft, normoactive bowel sounds - Routine Extremities Exam Absent: cyanosis, clubbing, edema - Routine Skin Exam Present: intact - Routine Neurological Exam Present: alert, oriented X3 - Detailed Neurological Exam: Coma Scale Eye Opening: Spontaneous Verbal Response: Oriented Motor Response: Obey commands [place] Coma Scale Total: 15 - Routine Psychiatric Exam Present: normal affect Assessment and Plan - Assessment and Plan Plan: STEMI -Status post cardiac catheterization -70% distal left main and complete RCA occlusion -Awaiting cardiothoracic surgery evaluation for CABG -Aspirin, statins, and further management per reconciliation manager Hypertension -Continue lisinopril -Continue hydrochlorothiazide Tobacco abuse. -Monitor for withdrawal -Nicotine patch if indicated Obesity -Weight management counseling provided DVT GI prophylaxis -Teds SCDs -Heparin -Pepcid Critical Care: The total critical care time was 35 minutes. Time to perform other separately billable procedures was not included in the critical care time.
[2017-08-28] MEDS ORDERED: Temazepam 15 MG Capsule PO PRN (21:00)
[2017-08-28] MEDS ORDERED: Cangrelor Inj 50,000 MCG in Sodium Chlor 0.9% Inj 250 ML IV.SIG SCH ×2 (21:00→21:30)
[2017-08-28] MEDS: Metoprolol Tartrate 25 MG Tablet PO SCH (22:18)
[2017-08-28] MEDS: Heparin Drip 25,000 UNIT/250 ML BAG IV.CONT PRN (22:38)
[2017-08-29 06:04] LABS: Baso % (Auto) 0.3 % (0.0-2.0); Eos % (Auto) 0.4 % (0.0-4.0); Hematocrit 46.8 % (39.0-51.0); Hemoglobin 15.7 gm/dL (13.0-17.0); Lymph # (Auto) 2.1 th/mm3 (1.0-4.8); Lymph % (Auto) 21.4 % (9.0-44.0); Mean Corpuscular HGB Conc 33.5 % (32.0-36.0); Mean Corpuscular Hemoglobin 30.7 pg (27.0-34.0); Mean Corpuscular Volume 91.5 fL (80.0-100.0); Mean Platelet Volume 9.5 fL (7.0-11.0); Mono # (Auto) 0.7 th/mm3 (0.0-0.9); Mono % (Auto) 7.4 % (0.0-8.0); Neut # (Auto) 6.8 th/mm3 (1.8-7.7); Neut % (Auto) 70.5 % (16.0-70.0); Platelet Count 131 th/mm3 (150-450); Red Blood Count 5.11 mil/mm3 (4.50-5.90); Red Cell Distribution Width 13.2 % (11.6-17.2); White Blood Count 9.6 th/mm3 (4.0-11.0)
[2017-08-29 06:46] LABS: Anion Gap 11 meq/L (5-15); Blood Urea Nitrogen 9 mg/dL (7-18); Calcium 8.1 mg/dL (8.5-10.1); Carbon Dioxide 22.4 meq/L (21.0-32.0); Chloride 110 meq/L (98-107); Chol/HDL Ratio 4.47 Ratio; Cholesterol 155 mg/dL (120-200); Creatine Kinase 2795 U/L (39-308); Glomerular Filtration Rate Greater Than 89 mL/min (>89); Glucose,Random 121 mg/dL (74-106); HDL Cholesterol 34.6 mg/dL (40.0-60.0); LDL Cholesterol,Calculated 89 mg/dL (0-99); Sodium 143 meq/L (136-145); Triglycerides 157 mg/dL (42-150)
[2017-08-29 07:09] LABS: Creatine Kinase MB 219.7 ng/mL (0.5-3.6)
[2017-08-29 07:29] LABS: CKMB Percent 7.9 % (0.0-4.0)
[2017-08-29] MEDS: Metoprolol Tartrate 25 MG Tablet PO SCH ×2 (08:47→21:03)
[2017-08-29] MEDS ORDERED: Dextrose 50% in Water 50 ML Vial IV.PUSH PRN (09:06)
[2017-08-29] MEDS ORDERED: Insulin Regular (For Infusion) 100 UNIT in Sodium Chlor 0.9% Inj 99 ML IV.CONT PRN (09:06)
[2017-08-29] MEDS ORDERED: Sodium Chlor 0.9% Inj 77.5 ML, Papaverine Inj 60 MG, Nitroglycerin Inj 100 MCG, dilTIAZ... IRRIGATION SCH ×3 (09:15)
[2017-08-29] MEDS ORDERED: Sodium Chloride 0.9% Irr Bot 500 ML, ceFAZolin Inj 500 MG IRRIGATION SCH ×2 (09:15)
[2017-08-29] MEDS ORDERED: Chlorhexidine 4% Topical 120 APPLIC/120 ML Bottle TOPICAL SCH (09:15)
--- NOTE | 2017-08-29 09:29 | P.PNCA ---
- Note Subjective/Hospital Course: Patient examined and chart reviewed. Findings discussed with the pt and the family Planned OR Thursday, if remains clinically and hemodynamically stable Full consult dictated. Objective: Vital Signs - 24 hr 08/28/17 17:36 08/28/17 18:12 08/28/17 18:25 Temperature 97.7 F Pulse Rate 109 H Respiratory Rate 20 Blood Pressure 194/120 H Pulse Oximetry 98 98 98 08/28/17 19:45 08/28/17 20:00 08/28/17 20:30 Temperature 98.2 F Pulse Rate 74 74 73 Respiratory Rate 18 18 Blood Pressure 134/86 133/99 H Pulse Oximetry 98 98 98 08/28/17 20:45 08/28/17 21:00 08/28/17 21:30 Temperature Pulse Rate 79 89 102 H Respiratory Rate 18 18 18 Blood Pressure 150/97 H 135/94 H 146/104 H Pulse Oximetry 98 98 99 08/28/17 22:00 08/28/17 22:30 08/28/17 22:50 Temperature Pulse Rate 89 88 Respiratory Rate 18 18 Blood Pressure 132/97 H 129/83 Pulse Oximetry 99 99 97 08/28/17 23:00 08/28/17 23:30 08/29/17 00:00 Temperature 98.6 F Pulse Rate 87 106 H 93 H Respiratory Rate 18 18 18 Blood Pressure 136/91 H 157/102 H 133/93 H Pulse Oximetry 98 97 96 08/29/17 01:00 08/29/17 02:00 08/29/17 03:30 Temperature Pulse Rate 90 90 94 H Respiratory Rate 18 18 Blood Pressure 131/97 H 143/95 H Pulse Oximetry 96 102 H 08/29/17 04:00 Temperature 99 F Pulse Rate 87 Respiratory Rate 18 Blood Pressure 137/97 H Pulse Oximetry 96 Labs: Laboratory Results - last 12 hr 08/29/17 08/29/17 08/29/17 04:47 04:47 04:47 WBC 9.6 RBC 5.11 Hgb 15.7 Hct 46.8 MCV 91.5 MCH 30.7 MCHC 33.5 RDW 13.2 Plt Count 131 L MPV 9.5 Neut % (Auto) 70.5 H Lymph % (Auto) 21.4 Becker % (Auto) 7.4 Eos % (Auto) 0.4 Baso % (Auto) 0.3 Neut # (Auto) 6.8 Lymph # (Auto) 2.1 Becker # (Auto) 0.7 Eos # (Auto) 0.0 Baso # (Auto) 0.0 WBC Differential . Differential Comment Auto diff final APTT 32.3 H Sodium 143 Potassium 4.0 D Chloride 110 H Carbon Dioxide 22.4 Anion Gap 11 BUN 9 Creatinine 0.84 Estimated GFR Greater than 89 Random Glucose 121 H Calcium 8.1 L Total Creatine Kinase 2795 H CK-MB (CK-2) 219.7 H CK-MB (CK-2) % 7.9 H* Triglycerides 157 H Cholesterol 155 LDL Cholesterol, Calc 89 HDL Cholesterol 34.6 L Cholesterol/HDL Ratio 4.47 Result Diagrams: 08/29/17 04:47 08/29/17 04:47
--- NOTE | 2017-08-29 09:49 | P.CON ---
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 Brought to ED by EMS. Further evaluation revealing inferior wall STEMI. Taken to phlebotomist lab assistant emergently by Dr. Engel and underwent emergent PCI of culprit RCA occlusion with great result. Has residual left main stenosis. I am now being consulted for coronary revascularization surgery of his remaining stenoses. At the present time, he is pain free and hemodynamically stable, with no evidence of ongoing ischemia. Review of Systems All other systems reviewed negative except as stated in HPI PMFSH - History History Provided By: Patient - Medical History Medical History: Medical History (Last Reviewed 08/29/17 @ 09:38 by Tania Dorado MD) Hypertension Obesity - Tobacco History Second Hand Smoke Exposure: No Tobacco Use In Past 30 Days: Yes (2 PPD) Smoking Status: Former smoker Tobacco Type: Cigarettes - Alcohol History How Often Do You Have a Drink Containing Alcohol: Never - Substance Use History Substance History: No History of Abuse - Travel History Recent Travel in the [place] Within the Last 8 Weeks: No Recent Travel Out of the Country Within the Last 8 Weeks: No - Immunization History Tetanus Immunization: Unsure Hx Influenza Vaccine This Season: No Medications and Allergies Active Medications: Active Medications Acetaminophen (Tylenol) 325 mg PO Q4H PRN PRN Reason: PAIN SCALE 1 TO 2 Aspirin (Aspirin Chew) 81 mg PO DAILY [facility] Last Admin: 08/29/17 08:47 Dose: 81 mg Atorvastatin Calcium (Lipitor) 40 mg PO HS [facility] Last Admin: 08/28/17 22:20 Dose: 40 mg Atropine Sulfate (Atropine Inj) 0.5 mg IV.PUSH UNSCH PRN PRN Reason: VAGAL REPONSE Chlorhexidine Gluconate (Hibiclens 4% Topical) applicatio TOPICAL RFID SYSTEMS ARCHITECT [facility] Stop: 09/04/17 09:07 Sodium Chloride 500 ml/ (Cefazolin Sodium 500 mg) 0 ml IRRIGATION [employer]ID SYSTEMS ARCHITECT [facility] Stop: 09/04/17 09:10 Sodium Chloride 77.5 ml/Papaverine HCl 60 mg/Nitroglycerin 100 mcg/Diltiazem HCl 100 mg 0 ml IRRIGATION [employer]ID SYSTEMS ARCHITECT [facility] Stop: 09/04/17 09:07 Dextrose (D50w Vial) 50 ml IV.PUSH UNSCH PRN PRN Reason: PER HYPOGLYCEMIA PROTOCOL Sodium Chloride (Ns Inj) 1,000 mls @ 30 mls/hr IV.SIG .Q24H [facility] Stop: 08/29/17 17:59 Last Admin: 08/28/17 18:20 Dose: 30 mls/hr Heparin Sodium/Dextrose (Heparin/D5w 25,000 U/250 Ml) 25,000 unit in 250 mls @ 10 mls/hr IV.CONT TITRATE PRN; Protocol PRN Reason: Per Protocol Last Titration: 08/29/17 06:28 Dose: 1,100 units/hr, 11 mls/hr Cefazolin Sodium 2,000 mg/ (Sodium Chloride) 100 mls @ 200 mls/hr IV.SIG [employer] SYSTEM[employer] ARCHITECT [facility] Stop: 09/04/17 09:10 Insulin Human Regular 100 unit (/ Sodium Chloride) 100 mls @ 3 mls/hr IV.CONT TITRATE PRN; Protocol PRN Reason: See Protocol Lidocaine HCl (Xylocaine 1% Inj (50 Ml)) 10 ml INFILTRATN UNSCH PRN PRN Reason: SHEATH REMOVAL Stop: 08/29/17 19:21 Lorazepam (Ativan Inj) 0.5 mg IV.PUSH UNSCH PRN PRN Reason: ANXIETY Stop: 08/29/17 19:21 Metoprolol Tartrate (Lopressor) 12.5 mg PO BID [facility] Last Admin: 08/29/17 08:47 Dose: 12.5 mg Miscellaneous (Pill Splitter) 1 each OTHER UNSCH [facility] Mupirocin (Bactroban 2% Nasal Oint) 1 applicatio EACH NARE BID [facility] Stop: 09/02/17 09:12 Ondansetron HCl (Zofran Odt) 4 mg PO Q4H PRN PRN Reason: NAUSEA Oxycodone/Acetaminophen (Percocet 5/325 Mg) 1 tab PO Q4H PRN PRN Reason: PAIN SCALE 3 TO 5 Oxycodone/Acetaminophen (Percocet 10/325 Mg) 1 tab PO Q4H PRN PRN Reason: PAIN SCALE 6 TO 10 Sodium Chloride (Ns Flush) 2 ml IV.FLUSH BID [facility] Last Admin: 08/29/17 08:48 Dose: 2 ml Sodium Chloride (Ns Flush) 2 ml IV.FLUSH PRN PRN PRN Reason: FLUSH AFTER USING IV ACCESS Sodium Chloride (Ns Flush) 2 ml IV.FLUSH BID RHIANNA Sodium Chloride (Ns Flush) 2 ml IV.FLUSH PRN PRN PRN Reason: FLUSH AFTER USING IV ACCESS Temazepam (Restoril) 15 mg PO HS PRN PRN Reason: SLEEP Allergies Allergy/AdvReac Type Severity Reaction Status Date / Time No Known Allergies Allergy Unverified 08/28/17 17:44 Home Medications Medication Instructions Recorded Confirmed Type hydrochlorothiazide 08/28/17 History lisinopril 20 mg PO DAILY 08/28/17 08/28/17 History Physical Exam Vital signs: Vital Signs 08/28/17 17:36 08/28/17 18:12 08/28/17 18:25 Temperature 97.7 F Pulse Rate 109 H Respiratory Rate 20 Blood Pressure 194/120 H Pulse Oximetry 98 98 98 08/28/17 19:45 08/28/17 20:00 08/28/17 20:30 Temperature 98.2 F Pulse Rate 74 74 73 Respiratory Rate 18 18 Blood Pressure 134/86 133/99 H Pulse Oximetry 98 98 98 08/28/17 20:45 08/28/17 21:00 08/28/17 21:30 Temperature Pulse Rate 79 89 102 H Respiratory Rate 18 18 18 Blood Pressure 150/97 H 135/94 H 146/104 H Pulse Oximetry 98 98 99 08/28/17 22:00 08/28/17 22:30 08/28/17 22:50 Temperature Pulse Rate 89 88 Respiratory Rate 18 18 Blood Pressure 132/97 H 129/83 Pulse Oximetry 99 99 97 08/28/17 23:00 08/28/17 23:30 08/29/17 00:00 Temperature 98.6 F Pulse Rate 87 106 H 93 H Respiratory Rate 18 18 18 Blood Pressure 136/91 H 157/102 H 133/93 H Pulse Oximetry 98 97 96 08/29/17 01:00 08/29/17 02:00 08/29/17 03:30 Temperature Pulse Rate 90 90 94 H Respiratory Rate 18 18 Blood Pressure 131/97 H 143/95 H Pulse Oximetry 96 102 H 08/29/17 04:00 Temperature 99 F Pulse Rate 87 Respiratory Rate 18 Blood Pressure 137/97 H Pulse Oximetry 96 Intake & Output 08/28/17 08/29/17 08/29/17 18:59 06:59 18:59 Intake Total 547 / 547 Output Total 425 / 425 Balance 122 / 122 Weight 115.666 kg 115 kg 115 kg Intake: IV 307 / 307 Heparin/D5W 25,000 U/250 mL 25, 87 / 87 000 unit In 250 ml @ Per Protocol 10 mls/hr IV.CONT TITRATE PRN Rx#:[id number] Kengreal Inj 50,000 MCG In NS 220 / 220 Inj 250 ML @ As Directed IV.SIG UNSCH X1 RHIANNA Rx#:[id number] Oral 240 / 240 Output: Urine 425 / 425 Other: # Bowel Movements 0 Weight On Admission 115 kg - Constitutional no acute distress - Routine HEENT Exam Head: Present: normocephalic, atraumatic - Routine Neck Exam Absent: JVD, carotid bruit - Routine Chest/Breast/Axilla Exam Chest wall: Absent: tenderness - Routine Respiratory Exam Present: CTA bilaterally. Absent: rales, respiratory distress - Routine Cardiovascular Exam Present: RRR, S1, S2. Absent: murmur, gallop, rubs, JVD - Routine Abdominal Exam Present: soft, normoactive bowel sounds. Absent: tenderness, distended - Routine Extremities Exam Present: pulses intact. Absent: cyanosis, clubbing, edema - Routine Skin Exam Present: intact. Absent: cyanosis, erythema - Routine Neurological Exam Present: alert, oriented X3, CN II-XII intact Assessment and Plan - Assessment (1) ST elevation (STEMI) myocardial infarction involving right coronary artery Code(s): I21.11 - ST elevation (STEMI) myocardial infarction involving right coronary artery Status: Acute (2) HTN (hypertension) Code(s): I10 - Essential (primary) hypertension Status: Acute (3) Obesity Code(s): E66.9 - Obesity, unspecified Status: Acute (4) Nicotine dependence with current use Code(s): F17.200 - Nicotine dependence, unspecified, uncomplicated Status: Acute - Plan The clinical and angiographic findings were discussed with the patient, his and two daughters. Therapeutic options available including Coronary Artery Bypass Grafting was recommended. I agree with Dr. Engel that he will maximally benefit from bypass to his LAD, OM1 and possibly the small OM2 distributions. The risks, complications and benefits of the surgical procedure, as well as the technical details, were discussed in detail and all questions answered. They appeared to comprehend the given information and are in agreement with the proposed plan. Will plan on surgical procedure on Thursday as long as he remains pain-free and hemodynamically stable to allow for the ventricle to recover from the acute event. In the meantime, will obtain an ECHO, vein mapping and PFTs to stratify his surgical risk. Thank you for allowing me to participate in the care of this very pleasant gentleman.
--- NOTE | 2017-08-29 09:54 | P.PNCA ---
Subjective Interval history: no chest pain Physical Exam Vital signs: Vital Signs 08/28/17 17:36 08/28/17 18:12 08/28/17 18:25 Temperature 97.7 F Pulse Rate 109 H Respiratory Rate 20 Blood Pressure 194/120 H Pulse Oximetry 98 98 98 08/28/17 19:45 08/28/17 20:00 08/28/17 20:30 Temperature 98.2 F Pulse Rate 74 74 73 Respiratory Rate 18 18 Blood Pressure 134/86 133/99 H Pulse Oximetry 98 98 98 08/28/17 20:45 08/28/17 21:00 08/28/17 21:30 Temperature Pulse Rate 79 89 102 H Respiratory Rate 18 18 18 Blood Pressure 150/97 H 135/94 H 146/104 H Pulse Oximetry 98 98 99 08/28/17 22:00 08/28/17 22:30 08/28/17 22:50 Temperature Pulse Rate 89 88 Respiratory Rate 18 18 Blood Pressure 132/97 H 129/83 Pulse Oximetry 99 99 97 08/28/17 23:00 08/28/17 23:30 08/29/17 00:00 Temperature 98.6 F Pulse Rate 87 106 H 93 H Respiratory Rate 18 18 18 Blood Pressure 136/91 H 157/102 H 133/93 H Pulse Oximetry 98 97 96 08/29/17 01:00 08/29/17 02:00 08/29/17 03:30 Temperature Pulse Rate 90 90 94 H Respiratory Rate 18 18 Blood Pressure 131/97 H 143/95 H Pulse Oximetry 96 102 H 08/29/17 04:00 Temperature 99 F Pulse Rate 87 Respiratory Rate 18 Blood Pressure 137/97 H Pulse Oximetry 96 Intake & Output 08/28/17 08/29/17 08/29/17 18:59 06:59 18:59 Intake Total 547 / 547 Output Total 425 / 425 Balance 122 / 122 Weight 115.666 kg 115 kg 115 kg Intake: IV 307 / 307 Heparin/D5W 25,000 U/250 mL 25, 87 / 87 000 unit In 250 ml @ Per Protocol 10 mls/hr IV.CONT TITRATE PRN Rx#:[id number] Kengreal Inj 50,000 MCG In NS 220 / 220 Inj 250 ML @ As Directed IV.SIG UNSCH X1 RHIANNA Rx#:[id number] Oral 240 / 240 Output: Urine 425 / 425 Other: # Bowel Movements 0 Weight On Admission 115 kg - Constitutional no acute distress - Routine HEENT Exam Head: Present: normocephalic Eye: Present: EOMI, PERRL ENT: Present: mucous membranes moist - Routine Neck Exam Absent: JVD - Routine Respiratory Exam Present: CTA bilaterally - Routine Cardiovascular Exam Present: RRR, S1, S2. Absent: murmur - Routine Abdominal Exam Present: soft, normoactive bowel sounds - Routine Extremities Exam Absent: cyanosis, edema - Routine Neurological Exam Present: alert, oriented X3 Assessment and Plan - Plan STEMI - s/p PCI BMS RCA LM disease - CABG thursday continue heparin gtt asa statin bb echo
--- NOTE | 2017-08-29 10:28 | ECG ---
Date Performed: 08/28/2017 Time Performed: 21:08:14 PTAGE: 46 years EKG: Sinus rhythm . Left axis deviation Inferior infarct - age undetermined Abnormal ECG NO PREVIOUS TRACING DOCTOR: Rodger Florentino Interpretating Date/Time 08/29/2017 10:26:16
--- NOTE | 2017-08-29 10:32 | ECG ---
Date Performed: 08/28/2017 Time Performed: 17:52:23 PTAGE: 46 years EKG: Sinus rhythm INFERIOR MYOCARDIAL INFARCTION ACUTE MT NO PREVIOUS TRACING DOCTOR: Rodger Florentino Interpretating Date/Time 08/29/2017 10:30:43
--- NOTE | 2017-08-29 10:49 | P.PNCC ---
Subjective Subjective Remarks/Hospital Course: 08/28: 46-year-old very pleasant gentleman who smokes 2 pack per day, also history of hypertension on lisinopril presents with intermittent chest discomfort since about 1330 this afternoon. Patient states initially felt like heartburn, he took a [employer] powder and then to Pepcid AC. 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 His came to get him and brought him to the emergency department. Patient initially brought in through the waiting room, an EKG was performed showed inferior IL and a STEMI alert was activated. The patient was emergently taken to cardiac catheterization lab by Dr. Engel showed 70% occlusion of left main and thrombotic occlusion of RCA, underwent PCI of RCA lesion. Patient is now admitted to ICU awaiting CABG for LM disease. 08/29: Resting comfortably in bed. Denies any chest pain or shortness of breath. Awaiting CABG Objective Vital Signs / I&O: Vital Signs 08/28/17 17:36 08/28/17 18:12 08/28/17 18:25 Temperature 97.7 F Pulse Rate 109 H Respiratory Rate 20 Blood Pressure 194/120 H Pulse Oximetry 98 98 98 08/28/17 19:45 08/28/17 20:00 08/28/17 20:30 Temperature 98.2 F Pulse Rate 74 74 73 Respiratory Rate 18 18 Blood Pressure 134/86 133/99 H Pulse Oximetry 98 98 98 08/28/17 20:45 08/28/17 21:00 08/28/17 21:30 Temperature Pulse Rate 79 89 102 H Respiratory Rate 18 18 18 Blood Pressure 150/97 H 135/94 H 146/104 H Pulse Oximetry 98 98 99 08/28/17 22:00 08/28/17 22:30 08/28/17 22:50 Temperature Pulse Rate 89 88 Respiratory Rate 18 18 Blood Pressure 132/97 H 129/83 Pulse Oximetry 99 99 97 08/28/17 23:00 08/28/17 23:30 08/29/17 00:00 Temperature 98.6 F Pulse Rate 87 106 H 93 H Respiratory Rate 18 18 18 Blood Pressure 136/91 H 157/102 H 133/93 H Pulse Oximetry 98 97 96 08/29/17 01:00 08/29/17 02:00 08/29/17 03:30 Temperature Pulse Rate 90 90 94 H Respiratory Rate 18 18 Blood Pressure 131/97 H 143/95 H Pulse Oximetry 96 102 H 08/29/17 04:00 Temperature 99 F Pulse Rate 87 Respiratory Rate 18 Blood Pressure 137/97 H Pulse Oximetry 96 Intake & Output 08/28/17 08/29/17 08/29/17 18:59 06:59 18:59 Intake Total 547 / 547 Output Total 425 / 425 Balance 122 / 122 Weight 115.666 kg 115 kg 115 kg Intake: IV 307 / 307 Heparin/D5W 25,000 U/250 mL 25, 87 / 87 000 unit In 250 ml @ Per Protocol 10 mls/hr IV.CONT TITRATE PRN Rx#:[id number] Kengreal Inj 50,000 MCG In NS 220 / 220 Inj 250 ML @ As Directed IV.SIG UNSCH X1 RHIANNA Rx#:[id number] Oral 240 / 240 Output: Urine 425 / 425 Other: # Bowel Movements 0 Weight On Admission 115 kg Result Diagrams: 08/29/17 04:47 08/29/17 04:47 Other Results: Laboratory Results - last 24 hr 08/28/17 08/28/17 08/28/17 18:00 18:00 18:00 WBC 12.0 H RBC 5.53 Hgb 17.5 H POC Hgb (Calc) 17.7 H Hct 50.3 POC Hct 52.0 H MCV 91.0 MCH 31.6 MCHC 34.7 RDW 13.7 Plt Count 171 MPV 10.4 Neut % (Auto) 77.3 H Lymph % (Auto) 17.6 Page % (Auto) 4.3 Eos % (Auto) 0.1 Baso % (Auto) 0.7 Neut # (Auto) 9.3 H Lymph # (Auto) 2.1 Page # (Auto) 0.5 Eos # (Auto) 0.0 Baso # (Auto) 0.1 WBC Differential . Differential Comment Auto diff final PT 9.8 INR 1.0 APTT 28.2 POC Sodium 139 Sodium 139 POC Potassium 5.3 H Potassium 5.2 H POC Chloride 106 Chloride 108 H Carbon Dioxide 23.5 Anion Gap 8 POC BUN 15 BUN 11 Creatinine 1.09 POC Creatinine 1.0 Estimated GFR 73 L POC Glucose 108 Random Glucose 101 Calcium 8.7 Magnesium 2.1 Total Creatine Kinase 401 H CK-MB (CK-2) 17.1 H CK-MB (CK-2) % 4.3 H* Troponin I 3.04 H* B-Natriuretic Peptide Triglycerides Cholesterol LDL Cholesterol, Calc HDL Cholesterol Cholesterol/HDL Ratio 08/28/17 08/29/17 08/29/17 18:00 04:47 04:47 WBC 9.6 RBC 5.11 Hgb 15.7 POC Hgb (Calc) Hct 46.8 POC Hct MCV 91.5 MCH 30.7 MCHC 33.5 RDW 13.2 Plt Count 131 L MPV 9.5 Neut % (Auto) 70.5 H Lymph % (Auto) 21.4 Page % (Auto) 7.4 Eos % (Auto) 0.4 Baso % (Auto) 0.3 Neut # (Auto) 6.8 Lymph # (Auto) 2.1 Page # (Auto) 0.7 Eos # (Auto) 0.0 Baso # (Auto) 0.0 WBC Differential . Differential Comment Auto diff final PT INR APTT POC Sodium Sodium 143 POC Potassium Potassium 4.0 D POC Chloride Chloride 110 H Carbon Dioxide 22.4 Anion Gap 11 POC BUN BUN 9 Creatinine 0.84 POC Creatinine Estimated GFR Greater than 89 POC Glucose Random Glucose 121 H Calcium 8.1 L Magnesium Total Creatine Kinase 2795 H CK-MB (CK-2) 219.7 H CK-MB (CK-2) % 7.9 H* Troponin I B-Natriuretic Peptide Less than 2 Triglycerides 157 H Cholesterol 155 LDL Cholesterol, Calc 89 HDL Cholesterol 34.6 L Cholesterol/HDL Ratio 4.47 08/29/17 04:47 WBC RBC Hgb POC Hgb (Calc) Hct POC Hct MCV MCH MCHC RDW Plt Count MPV Neut % (Auto) Lymph % (Auto) Page % (Auto) Eos % (Auto) Baso % (Auto) Neut # (Auto) Lymph # (Auto) Page # (Auto) Eos # (Auto) Baso # (Auto) WBC Differential Differential Comment PT INR APTT 32.3 H POC Sodium Sodium POC Potassium Potassium POC Chloride Chloride Carbon Dioxide Anion Gap POC BUN BUN Creatinine POC Creatinine Estimated GFR POC Glucose Random Glucose Calcium Magnesium Total Creatine Kinase CK-MB (CK-2) CK-MB (CK-2) % Troponin I B-Natriuretic Peptide Triglycerides Cholesterol LDL Cholesterol, Calc HDL Cholesterol Cholesterol/HDL Ratio Imaging: Impressions Chest X-Ray 08/28/17 17:59 CONCLUSION: 1. Mild cardiomegaly. 2. No pulmonary vascular congestion or focal pulmonary infiltrate. Objective Remarks: HEENT/Neuro: No pallor or icterus, tongue moist, REGINO, Awake alert oriented 3 , nonfocal grossly, moving all 4 extremities Neck: No JVD Chest/pulmonary: CTA bilaterally Cardiovascular: S1-S2 regular no gallop or murmur GI/abdomen: Soft, nontender, bowel sounds present Extremities: Warm bilaterally, no edema Assessment and Plan - Assessment and Plan Plan: STEMI -Status post cardiac catheterization -70% distal left main and complete RCA occlusion s/p PCI of RCA occlusion. -Awaiting cardiothoracic surgery evaluation for CABG -Aspirin, statins, and further management per recovery rn Hypertension -Continue lisinopril -Continue hydrochlorothiazide Tobacco abuse. -Monitor for withdrawal -Nicotine patch if indicated Obesity -Weight management counseling provided DVT GI prophylaxis -Teds SCDs -Heparin -Pepcid
--- NOTE | 2017-08-29 10:52 | ECG ---
Date Performed: 08/29/2017 Time Performed: 08:12:44 PTAGE: 46 years EKG: Sinus rhythm . Left axis deviation Inferior infarct - age undetermined - possibly acute Lateral ST-T changes are n onspecific Abnormal ECG PREVIOUS TRACING : 08/28/2017 21.08 Compared to previous tracing, inferior ST elevation is now slightly more pronounced. DOCTOR: Rodger Florentino Interpretating Date/Time 08/29/2017 10:51:27
[2017-08-29 14:02] LABS: Hemoglobin A1c 5.9 % (4.3-6.0)
[2017-08-29] MEDS: Mupirocin 2% Nasal Oint Topical Syringe EACH NARE SCH ×2 (16:08→21:12)
--- NOTE | 2017-08-29 19:41 | US ---
EXAM DATE: 08/29/2017 7:32 PM EDT AGE/SEX: 46 years / Male INDICATIONS: Pre-Op cardiac. CLINICAL DATA: This is the patient's initial encounter. Patient reports that signs and symptoms have been present for 1 day and indicates a pain score of 0/10. MEDICAL/SURGICAL HISTORY: Hypertension. . COMPARISON: No prior exams available for comparison. TECHNIQUE: Venous ultrasound of both lower extremities was performed from the inguinal ligament to t he proximal calf. Real-time, color Doppler and spectral tracing, compression and augmentation techni ques were used. FINDINGS: Right Leg: Normal compression of the deep venous system from the inguinal region to the proximal trini f. No echogenic clot is seen. Normal response of the venous system to augmentation and respiration. Left Leg: Normal compression of the deep venous system from the inguinal region to the proximal calf . No echogenic clot is seen. Normal response of the venous system to augmentation and respiration. Other: None. CONCLUSION: 1. The study is negative for bilateral lower extremity deep venous thrombosis. Electronically signed by: Bo Villalobos MD 08/29/2017 7:39 PM EDT
--- NOTE | 2017-08-29 20:22 | US ---
EXAM DATE: 08/29/2017 7:39 PM EDT AGE/SEX: 46 years / Male INDICATIONS: Heart attack. Pre-op workup. CLINICAL DATA: This is the patient's initial encounter. Patient reports that signs and symptoms have been present for 2 days and indicates a pain score of 0/10. MEDICAL/SURGICAL HISTORY: Cardiovascular disease. . Heart stents. COMPARISON: No prior exams available for comparison. VELOCITY PARAMETERS: ICA/CCA Ratio: Right 0.7 , Left 0.5 ICA: Right 51.8 cm/sec, Left 51.1 cm/sec CCA: Right 76.7 cm/sec, Left 91.8 cm/sec ECA: Right 94.8 cm/sec, Left 107.5 cm/sec Vertebral: Right 50.9 cm/sec antegrade, Left 54.3 cm/sec antegrade FINDINGS: Right Carotid: No significant plaque is visualized.The waveforms are within normal limits. Left Carotid: No significant plaque is visualized. The waveforms are within normal limits. Other: None. CONCLUSION: No significant plaque formation in the carotid arteries. No hemodynamically significant stenosis. Elvia tebral artery flow antegrade. Electronically signed by: Bo Villalobos MD 08/29/2017 8:20 PM EDT
--- NOTE | 2017-08-29 20:23 | US ---
EXAM DATE: 08/29/2017 7:43 PM EDT AGE/SEX: 46 years / Male INDICATIONS: Pre-op testing. CLINICAL DATA: This is the patient's initial encounter. Patient reports that signs and symptoms have been present for 2 days and indicates a pain score of 0/10. MEDICAL/SURGICAL HISTORY: Cerebrovascular disease. . Cardiac stents. COMPARISON: [facility] – [place], [place] VENOUS DOPPLER LEG BI, 08/29/2017. . MEASUREMENTS: RIGHT THIGH: Proximal:__7 mm Mid:__ 5 mm Distal:__5 mm LEFT THIGH: Proximal:__10 mm Mid:__6 mm Distal:__5 mm RIGHT CALF: Proximal:__5 mm Mid:__3 mm Distal:__3 mm LEFT CALF: Proximal:__5 mm Mid:__4 mm Distal:__4 mm FINDINGS: The venous system of the lower extremities are patent by color Doppler imaging. Measurements of the leg veins (in mm) are listed above. CONCLUSION: 1. Venous mapping measurements as above. Left greater saphenous vein is enlarged probably from venou s incompetence. Electronically signed by: Bo Villalobos MD 08/29/2017 8:21 PM EDT
[2017-08-29] MEDS: Heparin Drip 25,000 UNIT/250 ML BAG IV.CONT PRN (20:58)
[2017-08-30 04:29] LABS: Bilirubin,Urine Negative (Negative); Clarity,Urine Clear (Clear); Color,Urine Yellow (Yellw/Straw); Glucose,Urine (UA) Negative (Negative); Leukocyte Esterase,Urine Negative (Negative); Mucus,Urine Few /lpf (Occasional); Nitrite,Urine Negative (Negative); Specific Gravity,Urine 1.016 (1.002-1.035)
[2017-08-30 06:10] LABS: Hematocrit 46.2 % (39.0-51.0); Hemoglobin 15.6 gm/dL (13.0-17.0); Mean Corpuscular HGB Conc 33.7 % (32.0-36.0); Mean Corpuscular Hemoglobin 30.6 pg (27.0-34.0); Mean Corpuscular Volume 90.8 fL (80.0-100.0); Mean Platelet Volume 9.8 fL (7.0-11.0); Platelet Count 123 th/mm3 (150-450); Red Blood Count 5.09 mil/mm3 (4.50-5.90); Red Cell Distribution Width 13.6 % (11.6-17.2); White Blood Count 8.8 th/mm3 (4.0-11.0)
[2017-08-30] MEDS: Mupirocin 2% Nasal Oint Topical Syringe EACH NARE SCH ×2 (09:59→21:43)
[2017-08-30] MEDS: Metoprolol Tartrate 25 MG Tablet PO SCH ×2 (10:00→21:43)
--- NOTE | 2017-08-30 10:23 | P.PNCA ---
- Note Subjective/Hospital Course: 08/30 Awaiting ECHO results. Will plan for OR tomorrow second case Objective: Vital Signs - 24 hr 08/29/17 11:51 08/29/17 15:00 08/29/17 19:00 Temperature 98.3 F Pulse Rate 81 103 H Respiratory Rate 18 Blood Pressure 140/91 H Pulse Oximetry 96 96 08/29/17 20:00 08/29/17 23:00 08/29/17 23:03 Temperature Pulse Rate 85 Respiratory Rate Blood Pressure Pulse Oximetry 97 97 08/29/17 23:30 08/30/17 03:00 08/30/17 04:00 Temperature 97.9 F Pulse Rate 89 82 88 Respiratory Rate 18 20 Blood Pressure 133/95 H 119/83 Pulse Oximetry 96 94 L 08/30/17 07:00 Temperature Pulse Rate 88 Respiratory Rate Blood Pressure Pulse Oximetry Labs: Laboratory Results - last 12 hr 08/29/17 08/30/17 08/30/17 20:57 01:01 03:44 WBC RBC Hgb Hct MCV MCH MCHC RDW Plt Count MPV APTT 36.5 H Urine Color Yellow Urine Clarity Clear Urine pH 6.0 Ur Specific [place] 1.016 Urine Protein Negative Urine Glucose (UA) Negative Urine Ketones Negative Urine Occult Blood Negative Urine Nitrate Negative Urine Bilirubin Negative Urine Urobilinogen 2.0 H Ur Leukocyte Esterase Negative Urine RBC 1 Urine WBC 1 Urine Mucus Few H Micro UA Comment Culture not ind Urine Culture Comments Culture not ind Nasal Screen MRSA (PCR) Not detected Blood Type Blood Type Recheck Antibody Screen 08/30/17 08/30/17 05:41 05:41 WBC 8.8 RBC 5.09 Hgb 15.6 Hct 46.2 MCV 90.8 MCH 30.6 MCHC 33.7 RDW 13.6 Plt Count 123 L MPV 9.8 APTT Urine Color Urine Clarity Urine pH Ur Specific [place] Urine Protein Urine Glucose (UA) Urine Ketones Urine Occult Blood Urine Nitrate Urine Bilirubin Urine Urobilinogen Ur Leukocyte Esterase Urine RBC Urine WBC Urine Mucus Micro UA Comment Urine Culture Comments Nasal Screen MRSA (PCR) Blood Type O Positive Blood Type Recheck Required Antibody Screen Negative Result Diagrams: 08/30/17 05:41 08/29/17 04:47
--- NOTE | 2017-08-30 10:23 | P.PNCA ---
Subjective Interval history: no complaints Physical Exam Vital signs: Vital Signs 08/29/17 11:51 08/29/17 15:00 08/29/17 19:00 Temperature 98.3 F Pulse Rate 81 103 H Respiratory Rate 18 Blood Pressure 140/91 H Pulse Oximetry 96 96 08/29/17 20:00 08/29/17 23:00 08/29/17 23:03 Temperature Pulse Rate 85 Respiratory Rate Blood Pressure Pulse Oximetry 97 97 08/29/17 23:30 08/30/17 03:00 08/30/17 04:00 Temperature 97.9 F Pulse Rate 89 82 88 Respiratory Rate 18 20 Blood Pressure 133/95 H 119/83 Pulse Oximetry 96 94 L 08/30/17 07:00 Temperature Pulse Rate 88 Respiratory Rate Blood Pressure Pulse Oximetry Intake & Output 08/29/17 08/30/17 08/30/17 18:59 06:59 18:59 Intake Total 400 / 400 577 / 577 Output Total 1200 / 1200 850 / 850 Balance -800 / -800 -273 / -273 Weight 115 kg 113 kg Intake: IV 277 / 277 Heparin/D5W 25,000 U/250 mL 25, 277 / 277 000 unit In 250 ml @ Per Protocol 10 mls/hr IV.CONT TITRATE PRN Rx#:[id number] Oral 400 / 400 300 / 300 Output: Urine 1200 / 1200 850 / 850 Other: # Voids 2 # Bowel Movements 0 0 Weight On Admission 115 kg - Constitutional no acute distress - Routine HEENT Exam Head: Present: normocephalic - Routine Neck Exam Absent: JVD, thyromegaly - Routine Respiratory Exam Present: CTA bilaterally - Routine Cardiovascular Exam Present: RRR - Routine Abdominal Exam Present: soft, normoactive bowel sounds Assessment and Plan - Plan STEMI - s/p PCI BMS RCA LM disease - CABG thursday continue heparin gtt asa statin bb echo today
--- NOTE | 2017-08-30 10:49 | P.PNCC ---
Subjective Subjective Remarks/Hospital Course: 08/28: 46-year-old very pleasant gentleman who smokes 2 pack per day, also history of hypertension on lisinopril presents with intermittent chest discomfort since about 1330 this afternoon. Patient states initially felt like heartburn, he took a Goody's powder and then to Pepcid AC. 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 His came to get him and brought him to the emergency department. Patient initially brought in through the waiting room, an EKG was performed showed inferior [place] and a STEMI alert was activated. The patient was emergently taken to cardiac catheterization lab by Dr. Engel showed 70% occlusion of left main and thrombotic occlusion of RCA, underwent PCI of RCA lesion. Patient is now admitted to ICU awaiting CABG for LM disease. 08/29: Resting comfortably in bed. Denies any chest pain or shortness of breath. Awaiting CABG. 08/30: Resting comfortably. Denies any chest pain or shortness of breath. Objective Vital Signs / I&O: Vital Signs 08/29/17 11:51 08/29/17 15:00 08/29/17 19:00 Temperature 98.3 F Pulse Rate 81 103 H Respiratory Rate 18 Blood Pressure 140/91 H Pulse Oximetry 96 96 08/29/17 20:00 08/29/17 23:00 08/29/17 23:03 Temperature Pulse Rate 85 Respiratory Rate Blood Pressure Pulse Oximetry 97 97 08/29/17 23:30 08/30/17 03:00 08/30/17 04:00 Temperature 97.9 F Pulse Rate 89 82 88 Respiratory Rate 18 20 Blood Pressure 133/95 H 119/83 Pulse Oximetry 96 94 L 08/30/17 07:00 Temperature Pulse Rate 88 Respiratory Rate Blood Pressure Pulse Oximetry Intake & Output 08/29/17 08/30/17 08/30/17 18:59 06:59 18:59 Intake Total 400 / 400 577 / 577 Output Total 1200 / 1200 850 / 850 Balance -800 / -800 -273 / -273 Weight 115 kg 113 kg Intake: IV 277 / 277 Heparin/D5W 25,000 U/250 mL 25, 277 / 277 000 unit In 250 ml @ Per Protocol 10 mls/hr IV.CONT TITRATE PRN Rx#:[id number] Oral 400 / 400 300 / 300 Output: Urine 1200 / 1200 850 / 850 Other: # Voids 2 # Bowel Movements 0 0 Weight On Admission 115 kg Result Diagrams: 08/30/17 05:41 08/29/17 04:47 Imaging: ITS Impressions Chest X-Ray 08/28/17 17:59 CONCLUSION: 1. Mild cardiomegaly. 2. No pulmonary vascular congestion or focal pulmonary infiltrate. Venous Doppler Study 08/29/17 00:00 CONCLUSION: 1. The study is negative for bilateral lower extremity deep venous thrombosis. Carotid Doppler Study 08/29/17 09:07 CONCLUSION: No significant plaque formation in the carotid arteries. No hemodynamically significant stenosis. Vertebral artery flow antegrade. Lower Extremity Ultrasound 08/29/17 09:07 CONCLUSION: 1. Venous mapping measurements as above. Left greater saphenous vein is enlarged probably from venous incompetence. Objective Remarks: HEENT/Neuro: No pallor or icterus, tongue moist, REGINO, Awake alert oriented 3 , nonfocal grossly, moving all 4 extremities Neck: No JVD Chest/pulmonary: CTA bilaterally Cardiovascular: S1-S2 regular no gallop or murmur GI/abdomen: Soft, nontender, bowel sounds present Extremities: Warm bilaterally, no edema Assessment and Plan - Assessment and Plan Plan: STEMI -Status post cardiac catheterization -70% distal left main and complete RCA occlusion s/p PCI of RCA occlusion. 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 -Monitor for withdrawal -Nicotine patch if indicated Obesity -Weight management counseling provided DVT GI prophylaxis -Teds SCDs -Heparin -Pepcid
--- NOTE | 2017-08-30 18:39 | ECHRPT ---
Indication: CHEST PAIN, CAD, PRE CABG CONCLUSIONS Normal left ventricular size. Mild concentric left ventricular hypertrophy. There is mild left ventricular systolic dysfunction with an estimated ejection fraction of 45%. Septal wall motion abnormality. Trace mitral valve regurgitation. There is trace tricuspid valve regurgitation. BP: / HR: Rhythm: Sinus MEASUREMENTS (Male / Female) Normal Values Technical Quality:Fair 2D ECHO LV Diastolic Diameter PLAX 4.5 cm 4.2 - 5.9 / 3.9 - 5.3 cm LV Systolic Diameter PLAX 4.0 cm IVS Diastolic Thickness 1.1 cm 0.6 - 1.0 / 0.6 - 0.9 cm LVPW Diastolic Thickness 1.1 cm 0.6 - 1.0 / 0.6 - 0.9 cm LV Relative Wall Thickness 0.5 RV Internal Dim ED PLAX 2.4 cm LVOT Diameter 2.2 cm Aortic Root Diameter 3.0 cm LA Systolic Diameter LX 3.7 cm 3.0 - 4.0 / 2.7 - 3.8 cm M-MODE AV Cusp Separation MM 2.1 cm DOPPLER AV Peak Velocity 112.0 cm/s AV Peak Gradient 5.0 mmHg AV Mean Gradient 3.0 mmHg AV Velocity Time Integral 18.2 cm LVOT Peak Velocity 47.4 cm/s LVOT Peak Gradient 0.9 mmHg LVOT Velocity Time Integral 7.4 cm AV Area Cont Eq vti 1.6 cm AV Area Cont Eq pk 1.6 cm Mitral E Point Velocity 42.0 cm/s Mitral A Point Velocity 84.9 cm/s Mitral E to A Ratio 0.5 PV Peak Velocity 53.4 cm/s PV Peak Gradient 1.1 mmHg FINDINGS LEFT VENTRICLE Normal left ventricular size. Mild concentric left ventricular hypertrophy. The left ventricular systolic function is mildly reduced with an estimated ejection fraction of 45%. Septal wall motion abnormality. RIGHT VENTRICLE Normal right ventricular size and systolic function. LEFT ATRIUM The left atrial size is normal. RIGHT ATRIUM The right atrial size is normal. ATRIAL SEPTUM No atrial level shunt is demonstrated by color flow Doppler interrogation. AORTA The aortic root and proximal ascending aorta are normal in size on limited imaging. MITRAL VALVE Trace mitral valve regurgitation. AORTIC VALVE No aortic valve stenosis or regurgitation. TRICUSPID VALVE There is trace tricuspid valve regurgitation. PULMONARY VALVE The pulmonary valve is not well visualized. VESSELS The inferior vena cava is normal in size. PERICARDIUM No pericardial effusion. A prominent epicardial fat pad is present. Kerrie Encarnacion MD, FACC (Electronically Signed) Final Date:30 August 2017 18:38
--- NOTE | 2017-08-31 07:11 | P.PNCA ---
- Note Subjective/Hospital Course: Risk Model and Variables - STS Adult Cardiac Surgery Database Version 2.81 RISK SCORES About the STS Risk Calculator Procedure: CAB Only Risk of Mortality: 0.594% Morbidity or Mortality: 11.861% Long Length of Stay: 2.661% Short Length of Stay: 61.116% Permanent Stroke: 0.475% Prolonged Ventilation: 9.338% DSW Infection: 0.38% Renal Failure: 2.152% Reoperation: 3.363% Objective: Vital Signs - 24 hr 08/30/17 08:00 08/30/17 11:00 08/30/17 12:00 Temperature 98 F 97 F L Pulse Rate 87 85 90 Respiratory Rate 20 18 Blood Pressure 120/67 138/59 L Pulse Oximetry 95 08/30/17 15:00 08/30/17 16:00 08/30/17 17:08 Temperature 98 F Pulse Rate 87 87 Respiratory Rate 20 Blood Pressure 112/90 Pulse Oximetry 95 08/30/17 19:00 08/30/17 20:00 08/30/17 21:05 Temperature 98.8 F Pulse Rate 94 H 83 Respiratory Rate 18 Blood Pressure 143/89 H Pulse Oximetry 95 08/30/17 23:00 08/31/17 00:00 08/31/17 03:00 Temperature 99.3 F Pulse Rate 91 H 97 H 86 Respiratory Rate 18 Blood Pressure 124/87 Pulse Oximetry 08/31/17 04:00 Temperature 98.4 F Pulse Rate 97 H Respiratory Rate 18 Blood Pressure 111/75 Pulse Oximetry Labs: Laboratory Results - last 12 hr 08/30/17 08/31/17 08/31/17 21:00 00:16 00:34 APTT 37.1 H Blood Type Confirm O Positive O Positive MTS Gel Crossmatch See Detail 08/31/17 03:55 APTT 39.0 H Blood Type Confirm MTS Gel Crossmatch Result Diagrams: 08/30/17 05:41 08/29/17 04:47
--- NOTE | 2017-08-31 07:54 | P.PNCA ---
Subjective Interval history: No chest pain or shortness of breath. For CABG today, all questions answered Physical Exam Vital signs: Vital Signs 08/30/17 08:00 08/30/17 11:00 08/30/17 12:00 Temperature 98 F 97 F L Pulse Rate 87 85 90 Respiratory Rate 20 18 Blood Pressure 120/67 138/59 L Pulse Oximetry 95 08/30/17 15:00 08/30/17 16:00 08/30/17 17:08 Temperature 98 F Pulse Rate 87 87 Respiratory Rate 20 Blood Pressure 112/90 Pulse Oximetry 95 08/30/17 19:00 08/30/17 20:00 08/30/17 21:05 Temperature 98.8 F Pulse Rate 94 H 83 Respiratory Rate 18 Blood Pressure 143/89 H Pulse Oximetry 95 08/30/17 23:00 08/31/17 00:00 08/31/17 03:00 Temperature 99.3 F Pulse Rate 91 H 97 H 86 Respiratory Rate 18 Blood Pressure 124/87 Pulse Oximetry 08/31/17 04:00 Temperature 98.4 F Pulse Rate 97 H Respiratory Rate 18 Blood Pressure 111/75 Pulse Oximetry Intake & Output 08/30/17 08/31/17 08/31/17 18:59 06:59 18:59 Intake Total 300 / 300 376 / 376 Output Total 850 / 850 425 / 425 Balance -550 / -550 -49 / -49 Weight 242 lb 8.136 oz Intake: IV 136 / 136 Heparin/D5W 25,000 U/250 mL 25, 136 / 136 000 unit In 250 ml @ Per Protocol 10 mls/hr IV.CONT TITRATE PRN Rx#:[id number] Oral 300 / 300 240 / 240 Output: Urine 850 / 850 425 / 425 Other: # Voids 2 1 # Bowel Movements 0 0 Narrative: GENERAL: Well-developed well-nourished. In no acute distress. NECK: No carotid bruits. No JVD. CARDIOVASCULAR: Regular rate and rhythm. No murmur appreciated. RESPIRATORY: No accessory muscle use. Clear to auscultation. Breath sounds equal bilaterally. MUSCULOSKELETAL: No clubbing or cyanosis. No edema. Some varicose veins of the left lower extremity. NEUROLOGICAL: Awake and alert. Normal speech. Assessment and Plan - Plan STEMI - s/p PCI BMS RCA LM disease - CABG 08/31 continue heparin gtt for now asa statin bb echo showed mild cardiomyopathy with EF 45%
[2017-08-31] MEDS: Metoprolol Tartrate 25 MG Tablet PO SCH (08:20)
[2017-08-31] MEDS: Mupirocin 2% Nasal Oint Topical Syringe EACH NARE SCH (08:22)
[2017-08-31] MEDS ORDERED: Metoprolol Tartrate 25 MG Tablet PO SCH (08:45)
[2017-08-31] MEDS ORDERED: Chlorhexidine Gluconate 2% 1 Pack (2 Cloths) TOPICAL SCH (08:45)
[2017-08-31] MEDS ORDERED: Sodium Chlor 0.9% Inj 500 ML IV.SIG SCH (09:00)
--- NOTE | 2017-08-31 09:33 | P.PNCA ---
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 Brought to ED by EMS. Further evaluation revealing inferior wall STEMI. Taken to [facility] emergently by Dr. Engel and underwent emergent PCI of culprit RCA occlusion with great result. Has residual left main stenosis. PMH: tobacco abuse HTN EF 60% 08/31/17 surgery Objective: Vital Signs - 24 hr 08/30/17 11:00 08/30/17 12:00 08/30/17 15:00 Temperature 97 F L Pulse Rate 85 90 87 Respiratory Rate 18 Blood Pressure 138/59 L Pulse Oximetry 08/30/17 16:00 08/30/17 17:08 08/30/17 19:00 Temperature 98 F Pulse Rate 87 94 H Respiratory Rate 20 Blood Pressure 112/90 Pulse Oximetry 95 08/30/17 20:00 08/30/17 21:05 08/30/17 23:00 Temperature 98.8 F Pulse Rate 83 91 H Respiratory Rate 18 Blood Pressure 143/89 H Pulse Oximetry 95 08/31/17 00:00 08/31/17 03:00 08/31/17 04:00 Temperature 99.3 F 98.4 F Pulse Rate 97 H 86 97 H Respiratory Rate 18 18 Blood Pressure 124/87 111/75 Pulse Oximetry 08/31/17 07:00 08/31/17 08:00 Temperature 99.7 F H Pulse Rate 83 91 H Respiratory Rate 20 Blood Pressure 120/77 Pulse Oximetry 97 Labs: Laboratory Results - last 12 hr 08/31/17 08/31/17 08/31/17 00:16 00:34 03:55 APTT 39.0 H Blood Type Confirm O Positive O Positive MTS Gel Crossmatch See Detail Result Diagrams: 08/30/17 05:41 08/29/17 04:47
--- NOTE | 2017-08-31 09:41 | P.DCO ---
- Home Health Nursing Order: Signs/symptoms of disease process, Wound care and dressing changes, Nursing assessment with vital signs Instructions: Heart and Vascular Surgery patients *Special attention to sternal dressing Mandatory frequency Assess and evaluation, 4 days in a row The next week 3X week 2 times a week for 4 weeks 1 time a week for 5 weeks Schedule Heart and Vascular patients for full 60 day certification period Initial visit Review Open Heart Surgery Discharge Instructions (Sternal precautions, Activity, Elastic hose, Incision care, Driving, Incentive spirometry, Smoking, [place], Work and other) Need Betadine to paint incision Medication reconciliation Importance of follow up care/ check on appointments Make calendar record temperature daily When to call [facility] [place] nurse, review instructions, phone list Incentive Spirometry, demonstration Visit 1- Begin discharge instruction for patient family and/ or caregiver using teach back method- Signs and symptoms of infection Disease characteristics Medicines and side effects Foods and nutrition/ appetite Infection control/ hand washing/ hygiene Visit 2- Continue teaching Discharge instructions- include additional information on smoking cessation , sternal dressing (sternal vac) Visit 3- Continue teaching- Cough and deep breathing, incision monitoring. Choose my plate Visit 4- Continue teaching- Discuss limitations Discuss how they are feeling Discuss progress toward goals Remaining visits- continue teaching and monitoring For any questions please call : Thursday 8am-5pm Heart & Vascular Surgery Office ( Dr. Dorado & Dr. Torrez), After Hours / Nights (5pm -8am) Weekends and Holidays Please call [facility] Cardiac Intermediate Care Unit (C[facility]) Charge Nurse PREVENA Single Use Negative Wound Therapy System Caregiver Instruction Sheet 1. A Prevena dressing system was applied to the chest incision during surgery , to promote wound healing. It works via a suction device (negative pressure wound therapy) to remove low to moderate levels of exudate (drainage) and infectious materials. We recommend that the device stay in place for up to seven days, from day of surgery. 2. Day of Surgery___/11/10 Day of Removal ____/ 3. The dressing should only be removed by a health assisted living care manager. Please arrange removal of device to coincide with Home Health visit and or with Nursing staff at Rehab 4. If skin reddening or irritation of skin occurs, or excessive drainage, please notify the Cardiovascular Surgeons office at [phone]. 5. Light showering is permissible; however the pump should be disconnected and placed in safe location, where it will not get wet. The dressing should not be exposed to direct spray or submerged in water. No bath tub / shower only. Ensure the end of the tubing attached to the dressing is facing down so that water does not enter the top of the tube. 6. To remove Prevena dressing: press purple button to turn off device / remove the suction. Then disconnect the tubing from the pump. The fixation strips should be stretched away from the skin and the dressing lifted at one corner and peeled back until it has been fully removed. 7. After removal, it is ok to shower daily using liquid dial soap and clean wash cloth, rinse and pat dry, and leave incision open to air dry. For any concerns regarding Prevena dressing, and or wounds, please contact Shavon Finney, patient navigator at [phone] or notify the Cardiovascular Surgeons office at [phone]. Incentive spirometry Q1 hr x 10, while awake, also use acapella device hourly whole awake Sternal Breast Bone Precautions: NO pushing or pulling, ( pt must use sternal pillow to support chest with all activities and with coughing ( takes up to 3 months breast bone to heal ) Daily incision care: ok to shower daily, no tub bath. Wash all incisions with liquid dial soap, clean wash cloth to each site, rinse and pat dry. Observe for any signs of infection, such as drainage which is dark yellow, marroquin, green or foul smelling. Immediately report to the surgeon any drainage from the chest incision, or legs, and for any abnormal drainage from the chest tube sites. Notify surgeon if any temp >101.5 degrees F. When specialty dressing removed/ or if you do not have one, continue to shower daily as above, then rinse and pat incision dry and paint with betadine daily x 5 days. Allow steri strips to fall off if you have any. Avoid lotions, creams, salves, oils, etc. for the first month Please see attached forms for additional instructions regarding post Open Heart specialty wound vacuum dressings. BIPIN or Prevena , Dressing to be removed by Nursing staff on __09/07/17 F/U appointment: as per DC instructions: PCP in 2 weeks, CV surgeon 2 weeks, Assistant Professor Of Geography 3-4 weeks For any questions regarding incisions/ dressing / meds / post op care or above Symptoms, Thursday 8am-5pm Heart & Vascular Surgery Office ( Dr. Dorado & Dr. Torrez), After Hours / Nights (5pm -8am) Weekends and Holidays Please call [facility] Cardiac Intermediate Care Unit ([facility]) Charge Nurse - Certification I have seen patient Gopi North on 08/31/17. My clinical findings support the need for the requested home health care services because: Deconditioned with increased weakness I certify that my clinical findings support that this patient is homebound because: Post-op weakness
[2017-08-31] MEDS ORDERED: Iohexol 350 MG/ML 100 ML Vial (for Cath Lab) IV.SIG ONE (09:47)
[2017-08-31] MEDS ORDERED: ceFAZolin 2 GM Premix Inj 2 GM/50 ML PIGGYBACK IV.SIG ONE (11:28)
[2017-08-31] MEDS ORDERED: Heparin - SQ 10,000 UNITS/ML Vial SQ ONE ×3 (11:28→12:00)
[2017-08-31] MEDS ORDERED: Protamine Sulfate Inj 250 MG/25 ML Vial IV.PUSH ONE (12:00)
[2017-08-31] MEDS ORDERED: Phenylephrine/NS 1000 MCG/10ML Syringe IV.PUSH ONE (12:00)
[2017-08-31] MEDS ORDERED: Calcium Chloride Inj 1 GM/10 ML Syringe IV.PUSH ONE (12:00)
[2017-08-31] MEDS ORDERED: Nitroglycerin Drip Premix 50 MG/250 ML BOTTLE IV.SIG ONE (12:00)
[2017-08-31] MEDS ORDERED: Dexmedetomidine Inj 200 MCG/2 ML Vial IV.CONT ONE (12:00)
--- NOTE | 2017-08-31 12:27 | P.PNCC ---
Subjective Subjective Remarks/Hospital Course: 08/28: 46-year-old very pleasant gentleman who smokes 2 pack per day, also history of hypertension on lisinopril presents with intermittent chest discomfort since about 1330 this afternoon. Patient states initially felt like heartburn, he took a Goody's powder and then to Pepcid AC. 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 His came to get him and brought him to the emergency department. Patient initially brought in through the waiting room, an EKG was performed showed inferior [place] and a STEMI alert was activated. The patient was emergently taken to cardiac catheterization lab by Dr. Engel showed 70% occlusion of left main and thrombotic occlusion of RCA, underwent PCI of RCA lesion. Patient is now admitted to ICU awaiting CABG for LM disease. 08/29: Resting comfortably in bed. Denies any chest pain or shortness of breath. Awaiting CABG. 08/30: Resting comfortably. Denies any chest pain or shortness of breath. 08/31: Resting comfortably. Denies any chest pain or shortness of breath. Awaiting CABG. Objective Vital Signs / I&O: Vital Signs 08/30/17 15:00 08/30/17 16:00 08/30/17 17:08 Temperature 98 F Pulse Rate 87 87 Respiratory Rate 20 Blood Pressure 112/90 Pulse Oximetry 95 08/30/17 19:00 08/30/17 20:00 08/30/17 21:05 Temperature 98.8 F Pulse Rate 94 H 83 Respiratory Rate 18 Blood Pressure 143/89 H Pulse Oximetry 95 08/30/17 23:00 08/31/17 00:00 08/31/17 03:00 Temperature 99.3 F Pulse Rate 91 H 97 H 86 Respiratory Rate 18 Blood Pressure 124/87 Pulse Oximetry 08/31/17 04:00 08/31/17 07:00 08/31/17 07:15 Temperature 98.4 F Pulse Rate 97 H 83 Respiratory Rate 18 Blood Pressure 111/75 Pulse Oximetry 98 08/31/17 08:00 08/31/17 09:38 08/31/17 11:00 Temperature 99.7 F H Pulse Rate 91 H 90 Respiratory Rate 20 Blood Pressure 120/77 Pulse Oximetry 97 97 Intake & Output 08/30/17 08/31/1708/31/18 18:59 06:59 18:59 Intake Total 300 / 300 376 / 376 0 / 0 Output Total 850 / 850 425 / 425 Balance -550 / -550 -49 / -49 0 / 0 Weight 110 kg Intake: IV 136 / 136 0 / 0 Heparin/D5W 25,000 U/250 mL 25, 136 / 136 0 / 0 000 unit In 250 ml @ Per Protocol 10 mls/hr IV.CONT TITRATE PRN Rx#:[id number] Oral 300 / 300 240 / 240 Output: Urine 850 / 850 425 / 425 Other: # Voids 2 1 # Bowel Movements 0 0 Result Diagrams: 08/30/17 05:41 08/29/17 04:47 Objective Remarks: HEENT/Neuro: No pallor or icterus, tongue moist, REGINO, Awake alert oriented 3 , nonfocal grossly, moving all 4 extremities Neck: No JVD Chest/pulmonary: CTA bilaterally Cardiovascular: S1-S2 regular no gallop or murmur GI/abdomen: Soft, nontender, bowel sounds present Extremities: Warm bilaterally, no edema Assessment and Plan - Assessment and Plan Plan: STEMI -Status post cardiac catheterization -70% distal left main and complete RCA occlusion s/p PCI of RCA occlusion. 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 -Monitor for withdrawal -Nicotine patch if indicated Obesity -Weight management counseling provided DVT GI prophylaxis -Teds SCDs -Heparin -Pepcid
[2017-08-31] MEDS ORDERED: Sodium Chlor 0.9% Inj 57.5 ML, Papaverine Inj 60 MG, Nitroglycerin Inj 100 MCG, Verapam... IRRIGATION SCH ×3 (12:30)
[2017-08-31] MEDS ORDERED: Phenylephrine Inj 40 MG in Sodium Chlor 0.9% Inj 496 ML IV.CONT PRN (16:22)
[2017-08-31] MEDS ORDERED: RESP: Racemic Epinephrine 2.25% 0.5 ML Neb NEB PRN (16:22)
[2017-08-31] MEDS ORDERED: Clevidipine Inj 25 MG/50 ML VIAL IV.CONT PRN (16:22)
[2017-08-31] MEDS ORDERED: Ketorolac Inj 30 MG/ML (IVP) Vial IV.PUSH PRN (16:22)
[2017-08-31] MEDS ORDERED: Magnesium Sulfate Inj 2 GM in Sodium Chlor 0.9% Inj 96 ML IV.SIG PRN ×4 (16:22)
[2017-08-31] MEDS ORDERED: Post-op Orders (for Pharmacy) OTHER STA (16:22)
[2017-08-31] MEDS ORDERED: Albumin Human 5% Inj 250 ML IV.SIG PRN (16:22)
[2017-08-31] MEDS ORDERED: Dextrose 50% in Water 50 ML Vial IV.PUSH PRN (16:22)
[2017-08-31] MEDS ORDERED: Calcium Chloride Inj 1 GM in Sodium Chlor 0.9% Inj 100 ML IV.SIG PRN (16:22)
[2017-08-31] MEDS ORDERED: Potassium Chlor 20 mEq Premix 20 MEQ/100 ML PIGGYBACK IV.SIG PRN ×3 (16:22)
[2017-08-31] MEDS ORDERED: Metoprolol Inj 5 MG/5 ML Vial IV.PUSH PRN (16:22)
[2017-08-31] MEDS ORDERED: Insulin Regular (For Infusion) 100 UNIT in Sodium Chlor 0.9% Inj 99 ML IV.CONT PRN (16:22)
[2017-08-31] MEDS ORDERED: Dexmedetomidine Inj 200 MCG in Sodium Chlor 0.9% Inj 50 ML IV.SIG PRN (16:22)
[2017-08-31] MEDS ORDERED: Calcium Chloride Inj 1 GM/10 ML Syringe IV.PUSH PRN (16:22)
[2017-08-31] MEDS ORDERED: Morphine Inj 4 MG/ML Vial IV.PUSH PRN (16:22)
[2017-08-31] MEDS ORDERED: hydrALAZINE HCl Inj 20 MG/ML Vial IV.PUSH PRN (16:22)
[2017-08-31] MEDS ORDERED: fentaNYL Citrate Inj 100 MCG/2 ML Ampul IV.PUSH PRN (16:22)
--- NOTE | 2017-08-31 16:35 | P.PCN ---
Date of procedure: 08/31/17 Procedure: PREPROCEDURE DIAGNOSES 1. Severe Multi Vessel Coronary Artery Disease. 2. Acute Myocardial Infarction (STEMI) 3. Mild Left Ventricular Dysfunction 4. Left Main Stenosis 5. Chronic Nicotine Use POSTPROCEDURE DIAGNOSES Same SURGICAL PROCEDURE 1. Urgent Off-pump Coronary Artery Bypass Grafting x 2 with Left Internal Mammary Artery (BLANTON) to Left Anterior Descending (LAD), reverse saphenous vein graft to the Obtuse Marginal 1 (OM1) branch of the Circumflex artery 2. Right Leg Endoscopic Vein [place] 3. Intraoperative Vein Mapping. SURGEON Tania Dorado MD CLASSIFIED AD CLERK MICKEY Wray PA-C ANESTHESIA General endotracheal MAITRE D' Vivek Mcgill, ERGONOMICS CONSULTANT Jeremy Stanton MD PREPARATION ChloraPrep. COUNTS Needle, sponge, and instrument counts were correct. DRAINS Two 32-Nigerien mediastinal tubes. COMPLICATIONS None. INDICATIONS FOR PROCEDURE The patient is a 47-year-old presenting with chest pain and AMI. Patient was noted to have multi-vessel coronary artery disease and underwent emergent PCI to his RCA occlusion. The patient is being brought to the operating room for surgical revascularization therapy of his remaining stenoses. PROCEDURE Patient was brought to the operating room and placed supine on the OR table. Following the induction of adequate general endotracheal anesthesia and placement of appropriate monitoring devices, intraoperative vein mapping was performed which revealed varicose veins in bilateral thighs with a usable segment in the right calf. The patient was then prepped and draped in standard sterile fashion. Next, 2500 units of intravenous heparin was given. The right calf greater saphenous vein was harvested endoscopically. This appeared to be a useable-caliber conduit. Simultaneously, a median sternotomy was performed and the left internal mammary artery dissected free off the posterior sternal table. The patient was systemically heparinized and anticoagulation monitored by serial ACT measurements. The internal mammary artery had good pulsatile flow in it and was a good-caliber conduit. The pericardium was then divided in the midline, the cradle created and targets analyzed. At this point, all anastomoses were performed in a beating-heart fashion using the [employer] stabilizing system. The left internal mammary artery was anastomosed to the mid LAD (2.25 mm) in an end-to-side fashion using 7-0 Prolene. The segment of SVG was anastomosed to OM1 in an end-to-side fashion using 7-0 Prolene. The proximal anastomosis was then constructed to the ascending aorta in a running manner using 6-0 Prolene. All anastomotic sites were inspected and appeared to be hemostatic and patent. Protamine solution was given. Strict hemostasis was assured. The closure was undertaken. 2 chest tubes were placed. The pericardium was reapproximated in the midline. The sternum was approximated using sternal wires. The muscular and fascial layer were then closed in 3 layers. The endoscopic vein harvest site was closed in 2 layers. The patient tolerated the procedure well and was transferred to CVICU in stable condition.
[2017-08-31 17:28] LABS: ABG Base Excess -0.6 mmol/L (-2-2); ABG PCO2 43 mmHg (38-42); ABG PO2 77 mmHG (61-120)
--- NOTE | 2017-08-31 17:43 | XR ---
EXAM DATE: 08/31/2017 5:24 PM EDT AGE/SEX: 47 years / Male INDICATIONS: Post op CABG. CLINICAL DATA: This is the patient's subsequent encounter. Patient reports that signs and symptoms h ave been present for 1 day and indicates a pain score of Nonresponsive. MEDICAL/SURGICAL HISTORY: . Cerebrovascular disease. . Cardiac stents. COMPARISON: [facility] [place], CHEST 1V SINGLE AP, 08/28/2017. . FINDINGS: Examination of the chest demonstrates postoperative findings status post median sternotomy. Support l violet and tubes are in satisfactory position. Endotracheal tube is in place above the sofi. There is no evidence of pneumothorax. CONCLUSION: Postsurgical changes as above. Electronically signed by: Jeremy Sorto MD 08/31/2017 5:41 PM EDT
[2017-08-31] MEDS ORDERED: Amiodarone 200 MG Tablet PO SCH (21:00)
[2017-09-01] MEDS ORDERED: ceFAZolin Inj 2,000 MG in Sodium Chlor 0.9% Inj 80 ML IV.SIG SCH ×2 (01:00→06:00)
[2017-09-01 05:13] LABS: Hemoglobin 14.4 gm/dL (13.0-17.0); Mean Corpuscular HGB Conc 33.4 % (32.0-36.0); Mean Corpuscular Hemoglobin 30.7 pg (27.0-34.0); Mean Corpuscular Volume 92.1 fL (80.0-100.0); Mean Platelet Volume 9.2 fL (7.0-11.0); Platelet Count 118 th/mm3 (150-450); Red Blood Count 4.67 mil/mm3 (4.50-5.90); Red Cell Distribution Width 13.1 % (11.6-17.2); White Blood Count 10.9 th/mm3 (4.0-11.0)
[2017-09-01 05:34] LABS: Calcium 8.5 mg/dL (8.5-10.1); Carbon Dioxide 23.5 meq/L (21.0-32.0); Magnesium 2.4 mg/dL (1.5-2.5); Potassium 4.1 meq/L (3.5-5.1)
--- NOTE | 2017-09-01 06:22 | XR ---
EXAM DATE: 09/01/2017 6:10 AM EDT AGE/SEX: 47 years / Male INDICATIONS: Post CABG. CLINICAL DATA: This is the patient's subsequent encounter. Patient reports that signs and symptoms h ave been present for 2 days and indicates a pain score of 0/10. MEDICAL/SURGICAL HISTORY: Non-responsive. CABG. COMPARISON: [facility], CHEST 1V SINGLE AP, 08/31/2017. . FINDINGS: Patient has been extubated with NG tube removed. Stable right IJ central line, mediastinal drains and left-sided chest tube. Low lung volumes with mild bibasilar airspace disease. No significant pneumot horax. Cardiomediastinal contours are stable. Remainder of the exam is unchanged. CONCLUSION: 1. Patient has been extubated with NG tube removed. 2. Remaining tubes and lines are stable. 3. Mild bibasilar airspace disease, likely atelectasis. Electronically signed by: Cyrus Mcnair MD 09/01/2017 6:21 AM EDT
[2017-09-01] MEDS: Metoprolol Tartrate 25 MG Tablet PO SCH (08:18)
[2017-09-01] MEDS: Mupirocin 2% Nasal Oint Topical Syringe EACH NARE SCH ×2 (08:18→12:53)
[2017-09-01] MEDS ORDERED: Metoprolol Tartrate 25 MG Tablet PO ONE (09:12)
[2017-09-01] MEDS: ceFAZolin 2 GM Premix Inj 2 GM/50 ML PIGGYBACK IV.SIG SCH ×2 (09:49→17:26)
--- NOTE | 2017-09-01 10:14 | P.PNCA ---
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 Brought to ED by EMS. Further evaluation revealing inferior wall STEMI. Taken to quality assurance qa lab technician emergently by Dr. Engel and underwent emergent PCI of culprit RCA occlusion with great result. Has residual left main stenosis. PMH: tobacco abuse HTN EF 60% 08/31/17 surgery 1. Urgent Off-pump Coronary Artery Bypass Grafting x 2 with Left Internal Mammary Artery (BLANTON) to Left Anterior Descending (LAD), reverse saphenous vein graft to the Obtuse Marginal 1 (OM1) branch of the Circumflex artery 2. Right Leg Endoscopic Vein [place] 3. Intraoperative Vein Mapping. + 3000 balance 09/01 pt had episode of V fib / required defibrillation x 1 / pt received K+ and CA+ last pm amiodarone gtt, immediate post ECG had st elevation in inferior leads, with anterior septal depression ECG improved this am pt extubated this am now on 6 liters transition from IV amiodarone to po additional K+ given will keep pt in CVICU today on ASA, plavix , BB , statin Objective: Vital Signs - 24 hr 08/31/17 11:00 08/31/17 17:00 08/31/17 17:05 Temperature 98.5 F Pulse Rate 90 99 H Respiratory Rate 14 18 Blood Pressure 127/73 Pulse Oximetry 94 L 94 L 08/31/17 19:00 08/31/17 20:00 08/31/17 20:40 Temperature 99.1 F 98.8 F Pulse Rate 102 H 98 H 95 H Respiratory Rate 17 18 17 Blood Pressure 110/66 111/74 Pulse Oximetry 97 98 08/31/17 22:30 08/31/17 23:00 08/31/17 23:10 Temperature 98.6 F Pulse Rate 94 H Respiratory Rate 19 17 Blood Pressure 102/80 Pulse Oximetry 95 09/01/17 03:00 09/01/17 03:14 09/01/17 07:00 Temperature 98.9 F 99.1 F Pulse Rate 100 H 71 111 H Respiratory Rate 20 16 18 Blood Pressure 123/66 118/74 Pulse Oximetry 98 95 98 09/01/17 08:00 09/01/17 08:36 Temperature Pulse Rate 111 H 112 H Respiratory Rate 15 Blood Pressure Pulse Oximetry 98 98 GENERAL: A&O x 3 SKIN: Warm and dry. prevena dressing to chest , kashif wrap to left leg HEAD: Normocephalic. EYES: No scleral icterus. No injection or drainage. NECK: Supple, trachea midline. No JVD or lymphadenopathy. CARDIOVASCULAR: Regular rate and rhythm without murmurs, gallops, or rubs. RESPIRATORY: Breath sounds equal bilaterally. No accessory muscle use. chest tube to wall suction , no air leak / drained 250cc/ 12 hrs GASTROINTESTINAL: Abdomen soft, non-tender, nondistended. MUSCULOSKELETAL: No cyanosis, or edema. BACK: Nontender without obvious deformity. No CVA tenderness. Labs: Laboratory Results - last 12 hr 08/31/17 08/31/17 08/31/17 00:16 23:06 23:52 WBC RBC Hgb Hct MCV MCH MCHC RDW Plt Count MPV Sodium Potassium Chloride Carbon Dioxide Anion Gap BUN Creatinine Estimated GFR POC Glucose 115 H 135 H Random Glucose Calcium Magnesium MTS Gel Crossmatch See Detail 09/01/17 09/01/17 09/01/17 03:22 04:45 04:45 WBC 10.9 RBC 4.67 Hgb 14.4 Hct 43.0 MCV 92.1 MCH 30.7 MCHC 33.4 RDW 13.1 Plt Count 118 L MPV 9.2 Sodium 143 Potassium 4.1 Chloride 110 H Carbon Dioxide 23.5 Anion Gap 10 BUN 13 Creatinine 0.94 Estimated GFR 86 L POC Glucose 116 H Random Glucose 117 H Calcium 8.5 Magnesium 2.4 MTS Gel Crossmatch 09/01/17 09/01/17 07:22 08:24 WBC RBC Hgb Hct MCV MCH MCHC RDW Plt Count MPV Sodium Potassium Chloride Carbon Dioxide Anion Gap BUN Creatinine Estimated GFR POC Glucose 85 90 Random Glucose Calcium Magnesium MTS Gel Crossmatch Result Diagrams: 09/01/17 04:45 09/01/17 04:45 EKG: immediate post ECG had st elevation in inferior leads, with anterior septal depression now has q waves in inf leads - Plan (1) S/P CABG (coronary artery bypass graft) Plan: post CABG on ASA, statin , BB , amiodarone , plavix OOb ambulate leave chest tube in pulm toileting eval for diuresis later today (3) HTN (hypertension) Plan: on BB (5) Nicotine dependence with current use Plan: smoking cessation (3) HTN (hypertension) Qualifiers: Hypertension type: essential hypertension Qualified Code(s): I10 - Essential (primary) hypertension
[2017-09-01] MEDS ORDERED: Sod Phosphate/Sod Biphosphate (Adult) Enema 133 ML Bottle RECTAL PRN (10:16)
[2017-09-01] MEDS ORDERED: Dextrose 50% in Water 50 ML Vial IV.PUSH PRN (10:16)
[2017-09-01] MEDS ORDERED: Bisacodyl 10 MG Supp RECTAL PRN (10:16)
--- NOTE | 2017-09-01 12:32 | P.DIET ---
Nutritional Evaluation Type of nutrition evaluation: initial Screening comments: MDC for diet education s/p CABG x 2 on 08/31. Patient Navigator to provide education. Consult RD if complexities with diet education arise.
[2017-09-01] MEDS: Amiodarone 200 MG Tablet PO SCH ×2 (14:11→23:26)
[2017-09-01] MEDS: Insulin NovoLOG Aspart Correctional Sugar Inj SQ SCH ×2 (14:18→17:34)
--- NOTE | 2017-09-01 14:55 | P.PNCC ---
Subjective Subjective Remarks/Hospital Course: 08/28: 46-year-old very pleasant gentleman who smokes 2 pack per day, also history of hypertension on lisinopril presents with intermittent chest discomfort since about 1330 this afternoon. Patient states initially felt like heartburn, he took a Goody's powder and then to Pepcid AC. 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 His came to get him and brought him to the emergency department. Patient initially brought in through the waiting room, an EKG was performed showed inferior [place] and a STEMI alert was activated. The patient was emergently taken to cardiac catheterization lab by Dr. Engel showed 70% occlusion of left main and thrombotic occlusion of RCA, underwent PCI of RCA lesion. Patient is now admitted to ICU awaiting CABG for LM disease. 08/29: Resting comfortably in bed. Denies any chest pain or shortness of breath. Awaiting CABG. 08/30: Resting comfortably. Denies any chest pain or shortness of breath. 08/31: Resting comfortably. Denies any chest pain or shortness of breath. Awaiting CABG. 09/01: Underwent [facility] yesterday[facility]. Had episode of V fib postop yesterday requiring defibrillation. Subsequently placed on Amiodarone gtt. Extubated this morning on nasal cannula. Objective Vital Signs / I&O: Vital Signs 08/31/17 17:00 08/31/17 17:05 08/31/17 19:00 Temperature 98.5 F 99.1 F Pulse Rate 99 H 102 H Respiratory Rate 14 18 17 Blood Pressure 127/73 110/66 Pulse Oximetry 94 L 94 L 08/31/17 20:00 08/31/17 20:40 08/31/17 22:30 Temperature 98.8 F Pulse Rate 98 H 95 H Respiratory Rate 18 17 19 Blood Pressure 111/74 Pulse Oximetry 97 98 08/31/17 23:00 08/31/17 23:10 09/01/17 03:00 Temperature 98.6 F 98.9 F Pulse Rate 94 H 100 H Respiratory Rate 17 20 Blood Pressure 102/80 123/66 Pulse Oximetry 95 98 09/01/17 03:14 09/01/17 07:00 09/01/17 08:00 Temperature 99.1 F Pulse Rate 71 111 H 111 H Respiratory Rate 16 18 Blood Pressure 118/74 Pulse Oximetry 95 98 98 09/01/17 08:36 09/01/17 11:00 09/01/17 12:00 Temperature 98.9 F Pulse Rate 112 H 107 H 109 H Respiratory Rate 15 18 Blood Pressure 124/80 Pulse Oximetry 98 95 09/01/17 13:24 Temperature Pulse Rate 107 H Respiratory Rate Blood Pressure Pulse Oximetry Intake & Output 08/31/17 09/01/17 09/01/17 18:59 06:59 18:59 Intake Total 4550 / 4550 970 / 970 100 / 100 Output Total 750 / 750 1655 / 1655 Balance 3800 / 3800 -685 / -685 100 / 100 Weight 113 kg Intake: IV 100 / 100 910 / 910 100 / 100 Cordarone Inj 450 MG In D5W Inj 250 / 250 241 ML @ 1 MG/MIN 33.33 mls/hr IV.CONT .Q7H31M RHIANNA Rx#: [id number] Heparin/D5W 25,000 U/250 mL 25, 0 / 0 000 unit In 250 ml @ Per Protocol 10 mls/hr IV.CONT TITRATE PRN Rx#:[id number] Ofirmev Inj 1,000 mg In 100 ml 100 / 100 200 / 200 100 / 100 @ 400 mls/hr IV.SIG Q6H RHIANNA Rx# :[id number] Buminate 5% Inj 250 ML @ 250 250 / 250 mls/hr IV.SIG UNSCH PRN Rx#: [id number] Calcium Chloride Inj 1 GM In NS 110 / 110 Inj 100 ML @ 100 mls/hr IV.SIG UNSCH PRN Rx#:[id number] Ancef Inj 2,000 MG In NS Inj 80 100 / 100 ML @ 200 mls/hr IV.SIG Q8H RHIANNA Rx#:[id number] Oral 60 / 60 0 / 0 Anesthesia Amount 4000 / 4000 Cell Saver Amount 450 / 450 Output: Estimated Blood Loss 500 / 500 Urine Amount (Catheter) 250 / 250 905 / 905 Indwelling Temp Sensing 250 / 250 905 / 905 Catheter Gastric Drainage 500 / 500 Orogastric Tube 500 / 500 Chest Tube Drainage 250 / 250 #1 Pleural Y Connected 250 / 250 Other: # Bowel Movements 0 0 Result Diagrams: 09/01/17 04:45 09/01/17 04:45 Objective Remarks: HEENT/Neuro: No pallor or icterus, tongue moist, REGINO, Awake alert oriented 3 , nonfocal grossly, moving all 4 extremities Neck: No JVD Chest/pulmonary: CTA bilaterally. BIPIN dressing over sternotomy site. Chest tube in place Cardiovascular: S1-S2 regular no gallop or murmur GI/abdomen: Soft, nontender, bowel sounds present Extremities: Warm bilaterally, no edema Assessment and Plan - Assessment and Plan Plan: STEMI -Status post cardiac catheterization -70% distal left main and complete RCA occlusion s/p PCI of RCA occlusion. -s/p CABG POD 1. - Postop V fib s/p defibrillation. Amiodarone per cardiology/ CTS -Aspirin, statins, beta devin and further management per switching clerk Hypertension -Continue lisinopril -Continue hydrochlorothiazide Tobacco abuse. -Monitor for withdrawal -Nicotine patch if indicated Obesity -Weight management counseling provided DVT GI prophylaxis -Teds SCDs -Heparin -Pepcid Critical care will follow PRN. Furtehr management per CTS/ Cardiology.
--- NOTE | 2017-09-01 16:59 | ECG ---
Date Performed: 08/31/2017 Time Performed: 23:48:04 PTAGE: 47 years EKG: CONSIDER ACUTE ST ELEVATION OR Sinus tachycardia. Inferior ST elevation, CONSIDER A CUTE INFARCT Anteroseptal ST depression is probably reciprocal to inferior infarct Lateral ST changes may be due to myocardial ischemia Abnormal ECG PREVIOUS TRACING : 08/29/2017 08.12 Since the previous tracing, no significant change noted DOCTOR: Jeni Wall Interpretating Date/Time 09/01/2017 16:58:43
--- NOTE | 2017-09-01 17:01 | ECG ---
Date Performed: 09/01/2017 Time Performed: 06:50:32 PTAGE: 47 years EKG: Sinus tachycardia. Leftward axis Inferior infarct - age undetermined Possible anterior infa rct - age undetermined Lateral T wave changes may be due to myocardial ischemia Abnormal ECG PREVIOUS TRACING 08/31/17 @ 11.48 Since the previous tracing, no significant change noted DOCTOR: Jeni Wall Interpretating Date/Time 09/01/2017 17:00:21
[2017-09-01] MEDS ORDERED: fentaNYL Citrate Inj 250 MCG/5 ML Ampul ONE (18:31)
[2017-09-01] MEDS ORDERED: Metoprolol Tartrate 25 MG Tablet PO SCH (21:00)
[2017-09-01] MEDS: Docusate Sodium 100 MG Capsule PO SCH (21:19)
[2017-09-01] MEDS: oxyCODONE/Acetaminophen 10/325 Tablet PO PRN (23:27)
[2017-09-02] MEDS: ceFAZolin 2 GM Premix Inj 2 GM/50 ML PIGGYBACK IV.SIG SCH ×2 (01:06→10:06)
[2017-09-02] MEDS: Insulin NovoLOG Aspart Correctional Sugar Inj SQ SCH ×5 (02:38→17:17)
[2017-09-02] MEDS: oxyCODONE/Acetaminophen 10/325 Tablet PO PRN (06:03)
[2017-09-02] MEDS: Amiodarone 200 MG Tablet PO SCH ×2 (06:04→21:26)
--- NOTE | 2017-09-02 08:39 | P.PNCA ---
Subjective Interval history: doing very well chest tube in place telemetry reviewed Physical Exam Vital signs: Vital Signs 09/01/17 08:36 09/01/17 11:00 09/01/17 12:00 Temperature 98.9 F Pulse Rate 112 H 107 H 109 H Respiratory Rate 15 18 Blood Pressure 124/80 Pulse Oximetry 98 95 09/01/17 13:24 09/01/17 15:00 09/01/17 17:00 Temperature 98.2 F Pulse Rate 107 H 112 H 111 H Respiratory Rate 18 Blood Pressure 131/87 Pulse Oximetry 94 L 09/01/17 20:00 09/01/17 20:40 09/01/17 21:16 Temperature 99.3 F Pulse Rate 114 H 94 H Respiratory Rate 16 20 Blood Pressure 127/86 Pulse Oximetry 96 97 09/01/17 23:00 09/01/17 23:57 09/02/17 00:00 Temperature 99.3 F Pulse Rate 107 H 107 H Respiratory Rate 16 16 Blood Pressure 113/80 Pulse Oximetry 09/02/17 02:34 09/02/17 03:00 09/02/17 04:14 Temperature 99.1 F Pulse Rate 102 H Respiratory Rate 16 16 16 Blood Pressure 107/67 Pulse Oximetry 93 L 09/02/17 07:00 09/02/17 07:23 09/02/17 07:24 Temperature 98.8 F Pulse Rate 109 H 118 H Respiratory Rate 20 18 Blood Pressure 112/71 Pulse Oximetry 93 L 93 L Intake & Output 09/01/17 09/02/17 09/02/17 18:59 06:59 18:59 Intake Total 354.5 / 354.5 530 / 530 Output Total 820 / 820 700 / 700 Balance -465.5 / -465.5 -170 / -170 Weight 113 kg Intake: IV 204.5 / 204.5 50 / 50 Cordarone Inj 450 MG In D5W Inj 4.5 / 4.5 241 ML @ 1 MG/MIN 33.33 mls/hr IV.CONT .Q7H31M RHIANNA Rx#: [id number] Ofirmev Inj 1,000 mg In 100 ml 100 / 100 @ 400 mls/hr IV.SIG Q6H RHIANNA Rx# :[id number] Ancef 2 GM Premix Inj 2 gm In 100 / 100 50 / 50 50 ml @ 100 mls/hr IV.SIG Q8H RHIANNA Rx#:[id number] Oral 150 / 150 480 / 480 Output: Urine 690 / 690 700 / 700 Chest Tube Drainage 130 / 130 #1 Pleural Y Connected 130 / 130 Other: Date of Last Bowel Movement 08/30/17 08/30/17 # Bowel Movements 0 - Constitutional no acute distress - Routine HEENT Exam Eye: Present: EOMI, PERRL ENT: Present: mucous membranes moist - Routine Neck Exam Absent: JVD - Routine Respiratory Exam Present: CTA bilaterally - Routine Cardiovascular Exam Present: RRR, S1, S2 - Routine Abdominal Exam Present: normoactive bowel sounds - Routine Neurological Exam Absent: sensory deficit, motor deficit - Urinary Catheter Management Indwelling Temp Sensing Catheter Cath placed during this visit: yes, but has since been removed by the nurse Reason for continuing: Decision to DC catheter Insertion date: 08/31/17 Insertion time: 12:39 Removal date: 09/01/17 Removal time: 07:20 Assessment and Plan - Plan STEMI - s/p PCI BMS RCA LM disease - CABG 08/31 Cardiomyopathy with EF 45% telemetry August 31 - a few hours post-operatively developed ventricular fibrillation requiring defib x 1 back to NSR. no further arrhythmia. Amiodarone started by CT surgery. Will likely need defibrillator. Will consult EP. titrate BB. amio PO NPO
[2017-09-02] MEDS ORDERED: Metoprolol Tartrate 25 MG Tablet PO ONE (09:36)
[2017-09-02] MEDS: Multivitamin/Minerals Therapeutic Tablet PO SCH (10:07)
[2017-09-02] MEDS: Docusate Sodium 100 MG Capsule PO SCH (10:07)
[2017-09-02] MEDS: Polyethylene Glycol 3350 17 GM Packet PO SCH (10:08)
[2017-09-02 10:23] LABS: Hemoglobin 13.9 gm/dL (13.0-17.0); Mean Corpuscular HGB Conc 33.8 % (32.0-36.0); Mean Corpuscular Volume 91.5 fL (80.0-100.0); Mean Platelet Volume 9.7 fL (7.0-11.0); Platelet Count 132 th/mm3 (150-450); Red Blood Count 4.48 mil/mm3 (4.50-5.90); Red Cell Distribution Width 13.4 % (11.6-17.2); White Blood Count 10.9 th/mm3 (4.0-11.0)
[2017-09-02 10:34] LABS: INR 1.1 Ratio; Prothrombin Time 10.9 sec (9.8-11.6)
[2017-09-02 10:42] LABS: Alanine Aminotransferase 57 U/L (12-78); Albumin 3.1 g/dL (3.4-5.0); Anion Gap 9 meq/L (5-15); Aspartate Aminotransferase 114 U/L (15-37); Blood Urea Nitrogen 13 mg/dL (7-18); Calcium 8.4 mg/dL (8.5-10.1); Carbon Dioxide 26.6 meq/L (21.0-32.0); Chloride 105 meq/L (98-107); Glomerular Filtration Rate 75 mL/min (>89); Glucose,Random 106 mg/dL (74-106); Magnesium 2.4 mg/dL (1.5-2.5); Potassium 3.8 meq/L (3.5-5.1); Sodium 141 meq/L (136-145)
[2017-09-02 10:44] LABS: Alkaline Phosphatase 66 U/L (45-117); Total Protein 6.3 g/dL (6.4-8.2)
[2017-09-02] MEDS: Mupirocin 2% Nasal Oint Topical Syringe EACH NARE SCH (11:58)
--- NOTE | 2017-09-02 12:17 | XR ---
EXAM DATE: 09/02/2017 11:36 AM EDT AGE/SEX: 47 years / Male INDICATIONS: Post chest tube removal. CLINICAL DATA: This is the patient's initial encounter. Patient reports that signs and symptoms have been present for 2 days and indicates a pain score of 0/10. MEDICAL/SURGICAL HISTORY: None. CABG. COMPARISON: . FINDINGS: The cardiac silhouette is enlarged in transverse diameter. Median sternotomy wires are present. The c hest tube has been removed. There is no evidence of pneumothorax A right sided internal jugular vein catheter is in place without pneumothorax with its tip in the superior vena cava. The lungs are hypoi nflated. There is subsegmental atelectasis in the both bases. CONCLUSION: There is no evidence of pneumothorax. Electronically signed by: Jeremy Sorto MD 09/02/2017 12:16 PM EDT
[2017-09-02] MEDS ORDERED: Potassium Phosphate 500 MG Soluble Tablet PO ONE (13:27)
--- NOTE | 2017-09-02 13:33 | P.PNCA ---
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 Brought to ED by EMS. Further evaluation revealing inferior wall STEMI. Taken to rn cardiac cath emergently by Dr. Engel and underwent emergent PCI of culprit RCA occlusion with great result. Has residual left main stenosis. PMH: tobacco abuse HTN EF 60% 08/31/17 surgery 1. Urgent Off-pump Coronary Artery Bypass Grafting x 2 with Left Internal Mammary Artery (BLANTON) to Left Anterior Descending (LAD), reverse saphenous vein graft to the Obtuse Marginal 1 (OM1) branch of the Circumflex artery 2. Right Leg Endoscopic Vein [place] 3. Intraoperative Vein Mapping. + 3000 balance 09/01 pt had episode of V fib / required defibrillation x 1 / pt received K+ and CA+ last pm amiodarone gtt, immediate post ECG had st elevation in inferior leads, with anterior septal depression ECG improved this am pt extubated this am now on 6 liters transition from IV amiodarone to po additional K+ given will keep pt in CVICU today on ASA, plavix , BB , statin 09/[address] Engel/ consult placed with Dr Palma in regards to EP study 2/2 V fib episode electrolytes replaced wean 02 as tolerated/ eval for diuresis pulm toileting chest tube dc without difficultly/ no post PTX transfer to stepdown Objective: Vital Signs - 24 hr 09/01/17 15:00 09/01/17 17:00 09/01/17 20:00 Temperature 98.2 F 99.3 F Pulse Rate 112 H 111 H 114 H Respiratory Rate 18 16 Blood Pressure 131/87 127/86 Pulse Oximetry 94 L 96 09/01/17 20:40 09/01/17 21:16 09/01/17 23:00 Temperature Pulse Rate 94 H 107 H Respiratory Rate 20 Blood Pressure Pulse Oximetry 97 09/01/17 23:57 09/02/17 00:00 09/02/17 02:34 Temperature 99.3 F Pulse Rate 107 H Respiratory Rate 16 16 16 Blood Pressure 113/80 Pulse Oximetry 09/02/17 03:00 09/02/17 04:14 09/02/17 07:00 Temperature 99.1 F 98.8 F Pulse Rate 102 H 109 H Respiratory Rate 16 16 20 Blood Pressure 107/67 112/71 Pulse Oximetry 93 L 93 L 09/02/17 07:23 09/02/17 07:24 09/02/17 08:00 Temperature Pulse Rate 118 H Respiratory Rate 18 Blood Pressure Pulse Oximetry 93 L 94 L 09/02/17 10:56 09/02/17 10:57 Temperature 98.8 F Pulse Rate 115 H 111 H Respiratory Rate 20 Blood Pressure 129/91 H Pulse Oximetry 95 Labs: Laboratory Results - last 12 hr 08/31/17 09/02/17 09/02/17 00:16 06:08 09:15 WBC RBC Hgb Hct MCV MCH MCHC RDW Plt Count MPV PT INR Sodium Potassium Chloride Carbon Dioxide Anion Gap BUN Creatinine Estimated GFR POC Glucose 136 H 116 H Random Glucose Calcium Phosphorus Magnesium Total Bilirubin AST ALT Alkaline Phosphatase Total Protein Albumin MTS Gel Crossmatch See Detail 09/02/17 09/02/17 09/02/17 09:45 09:45 09:45 WBC 10.9 RBC 4.48 L Hgb 13.9 Hct 41.0 MCV 91.5 MCH 31.0 MCHC 33.8 RDW 13.4 Plt Count 132 L MPV 9.7 PT 10.9 INR 1.1 Sodium 141 Potassium 3.8 Chloride 105 Carbon Dioxide 26.6 Anion Gap 9 BUN 13 Creatinine 1.06 Estimated GFR 75 L POC Glucose Random Glucose 106 Calcium 8.4 L Phosphorus Magnesium 2.4 Total Bilirubin 1.0 AST 114 H ALT 57 Alkaline Phosphatase 66 Total Protein 6.3 L Albumin 3.1 L MTS Gel Crossmatch 09/02/17 09:45 WBC RBC Hgb Hct MCV MCH MCHC RDW Plt Count MPV PT INR Sodium Potassium Chloride Carbon Dioxide Anion Gap BUN Creatinine Estimated GFR POC Glucose Random Glucose Calcium Phosphorus 2.2 L D Magnesium Total Bilirubin AST ALT Alkaline Phosphatase Total Protein Albumin MTS Gel Crossmatch Result Diagrams: 09/02/17 09:45 09/02/17 09:45 Telemetry: NSR - Plan (1) S/P CABG (coronary artery bypass graft) Plan: post CABG on ASA, statin , BB , amiodarone , plavix OOb ambulate pulm toileting diuresis later today post episode of Vfib / consult with Dr palma pending (3) HTN (hypertension) Plan: on BB ( increased ) (5) Nicotine dependence with current use Plan: smoking cessation (3) HTN (hypertension) Qualifiers: Hypertension type: essential hypertension Qualified Code(s): I10 - Essential (primary) hypertension
[2017-09-02] MEDS: Isosorbide Mononitrate 30 MG ER 24HR Tablet (Imdur) PO SCH (14:49)
[2017-09-02] MEDS: Ketorolac Inj 30 MG/ML (IVP) Vial IV.PUSH PRN ×2 (16:15→22:56)
[2017-09-02] MEDS: Metoprolol Tartrate 25 MG Tablet PO SCH (21:23)
[2017-09-03] MEDS: Docusate Sodium 100 MG Capsule PO SCH ×2 (03:04→09:04)
[2017-09-03 04:22] LABS: Carbon Dioxide 26.7 meq/L (21.0-32.0); Magnesium 2.8 mg/dL (1.5-2.5); Potassium 4.1 meq/L (3.5-5.1)
[2017-09-03] MEDS: Insulin NovoLOG Aspart Correctional Sugar Inj SQ SCH ×3 (05:01→23:31)
[2017-09-03] MEDS: Isosorbide Mononitrate 30 MG ER 24HR Tablet (Imdur) PO SCH (06:17)
--- NOTE | 2017-09-03 08:39 | MB ---
cc: Zari Donaldson MD,Ti Eldridge MD DATE: 09/02/2017 REASON FOR CONSULTATION: Ventricular tachycardia and fibrillation. HISTORY OF PRESENT ILLNESS: Mr. 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 PTCA plus stent to the RCA was performed. The patient needed at that time pacer. There was left main stenosis. The patient was referred for surgery. Subsequently, post surgery, the patient developed ventricular fibrillation, required cardioversion. I was consulted for evaluation and management. The chart was reviewed. The patient was evaluated. I had a long conversation with the patient and his family. ALLERGIES: NONE REPORTED. SOCIAL HISTORY: The patient denied currently smoking and drinking. FAMILY HISTORY: Noncontributory to his current medical condition. MEDICATIONS: He is on acetaminophen, he is on albuterol, he is on amiodarone, aspirin, Lopressor 50 mg twice a day, he is on Protonix 40 mg a day, he is on Potassium. REVIEW OF SYSTEMS: He referred very frustrated, but no chest pain or discomfort. PHYSICAL EXAMINATION: GENERAL: Alert, fully oriented. VITAL SIGNS: His blood pressure on evaluation today 117/67, pulse around 150, respiratory rate 18. LUNGS: Ventilated. CARDIOVASCULAR: S1, S2, tachycardic. SKIN: There is a clean surgical wound. ABDOMEN: Soft, obese. No masses. EXTREMITIES: No edema. STUDY: Electrocardiogram indicated sinus rhythm, left axis, no acute ST and T-wave changes. ASSESSMENT AND RECOMMENDATIONS: Mr. North apparently, he currently is very frustrated. He referred difficulty of breathing when he was in the intensive care unit. spent around 9 hours unable to breath until the tube was removed. He is aware of being shocked for ventricular fibrillation. He said he has multiple accounts of his condition. He does not feel comfortable having any procedure done at this hospital. I explained to him that he has an episode of ventricular fibrillation that requires cardioversion, ejection fraction is normal, but because his ventricular fibrillation and post surgery also, his risk of sudden is high. I have asked the gentleman, at this point, to look for a second opinion. I discussed the case with Dr. Engel. Electrophysiology study can be done to rule out possible arrhythmia, but this gentleman is going to need a defibrillator for sudden secondary prevention. Risks, benefits of the procedure were discussed with him. The gentleman and his family will let me know about his decision. For now, we will continue current medical management. MD MOHAMUD Velez/STEVE , 11:28 PM , 11:56 PM
[2017-09-03] MEDS: Multivitamin/Minerals Therapeutic Tablet PO SCH (09:04)
[2017-09-03] MEDS: Metoprolol Tartrate 25 MG Tablet PO SCH ×2 (09:05→21:01)
[2017-09-03] MEDS: Amiodarone 200 MG Tablet PO SCH ×2 (09:05→21:01)
[2017-09-03] MEDS: Polyethylene Glycol 3350 17 GM Packet PO SCH (09:06)
--- NOTE | 2017-09-03 12:19 | ECHRPT ---
Indication: EVALUATE LV FUNC, S/P CABG CONCLUSIONS Normal left ventricular size. Mild concentric left ventricular hypertrophy. The left ventricular systolic function is mildly reduced with an estimated ejection fraction in the range of 45- 50%. There is abnormal (paradoxical) septal motion consistent with postoperative state. There is abnormal septal motion consistent with an intraventricular conduction delay. Doppler parameters are consistent with a pseudonormal left ventricular filling pattern with concomin ant abnormal relaxation and increased filling pressure (grade 2 diastolic dysfunction). The left ventricle is not well visualized. BP: / HR: Rhythm: Sinus MEASUREMENTS (Male / Female) Normal Values Technical Quality:Very technically difficult study 2D ECHO LV Diastolic Diameter PLAX 7.1 cm 4.2 - 5.9 / 3.9 - 5.3 cm LV Systolic Diameter PLAX 6.5 cm IVS Diastolic Thickness 1.0 cm 0.6 - 1.0 / 0.6 - 0.9 cm LVPW Diastolic Thickness 1.0 cm 0.6 - 1.0 / 0.6 - 0.9 cm LV Relative Wall Thickness 0.3 DOPPLER Mitral E Point Velocity 53.8 cm/s Mitral A Point Velocity 61.7 cm/s Mitral E to A Ratio 0.9 LV E' Lateral Velocity 6.4 cm/s Mitral E to LV E' Lateral Ratio 8.4 LV E' Septal Velocity 5.9 cm/s Mitral E to LV E' Septal Ratio 9.2 FINDINGS LEFT VENTRICLE Normal left ventricular size. Mild concentric left ventricular hypertrophy. The left ventricular systolic function is mildly reduced with an estimated ejection fraction in the range of 45- 50%. There is abnormal (paradoxical) septal motion consistent with postoperative state. There is abnormal septal motion consistent with an intraventricular conduction delay. Doppler parameters are consistent with a pseudonormal left ventricular filling pattern with concomin ant abnormal relaxation and increased filling pressure (grade 2 diastolic dysfunction). The left ventricle is not well visualized. Ti Engel MD, FACC (Electronically Signed) Final Date:03 September 2017 12:18
--- NOTE | 2017-09-03 14:41 | P.PNCA ---
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 Brought to ED by EMS. Further evaluation revealing inferior wall STEMI. Taken to lab instructor emergently by Dr. Engel and underwent emergent PCI of culprit RCA occlusion with great result. Has residual left main stenosis. PMH: tobacco abuse HTN EF 60% 08/31/17 surgery 1. Urgent Off-pump Coronary Artery Bypass Grafting x 2 with Left Internal Mammary Artery (BLANTON) to Left Anterior Descending (LAD), reverse saphenous vein graft to the Obtuse Marginal 1 (OM1) branch of the Circumflex artery 2. Right Leg Endoscopic Vein [place] 3. Intraoperative Vein Mapping. + 3000 balance 09/01 pt had episode of V fib / required defibrillation x 1 / pt received K+ and CA+ last pm amiodarone gtt, immediate post ECG had st elevation in inferior leads, with anterior septal depression ECG improved this am pt extubated this am now on 6 liters transition from IV amiodarone to po additional K+ given will keep pt in CVICU today on ASA, plavix , BB , statin 09/[address] Engel/ consult placed with Dr Donaldson in regards to EP study 2/ V fib episode electrolytes replaced wean 02 as tolerated/ eval for diuresis pulm toileting chest tube dc without difficultly/ no post PTX transfer to stepdown 09/[address] Donaldson , pt for possible ICD placement limited echo with EF 45% wean off 02 pain controlled , no BM since surgery continue imdur Objective: Vital Signs - 24 hr 09/02/17 15:00 09/02/17 16:38 09/02/17 17:38 Temperature 98.0 F Pulse Rate 110 H 108 H 114 H Respiratory Rate 20 Blood Pressure 135/88 Pulse Oximetry 94 L 09/02/17 19:00 09/02/17 20:00 09/02/17 21:00 Temperature 98.8 F Pulse Rate 115 H 118 H 104 H Respiratory Rate 20 Blood Pressure 117/67 Pulse Oximetry 95 94 L 09/02/17 21:53 09/02/17 22:00 09/02/17 23:00 Temperature 98 F Pulse Rate 111 H 106 H 94 H Respiratory Rate 18 18 Blood Pressure 103/59 L Pulse Oximetry 92 L 94 L 09/03/17 00:00 09/03/17 01:00 09/03/17 02:00 Temperature Pulse Rate 101 H 98 H 92 H Respiratory Rate 18 Blood Pressure Pulse Oximetry 09/03/17 03:00 09/03/17 04:00 09/03/17 05:00 Temperature 98.4 F Pulse Rate 92 H 93 H 90 Respiratory Rate 20 18 Blood Pressure 110/64 Pulse Oximetry 95 09/03/17 07:00 09/03/17 08:00 09/03/17 08:12 Temperature 98.3 F Pulse Rate 97 H 108 H 106 H Respiratory Rate 18 18 Blood Pressure 118/69 Pulse Oximetry 94 L 95 09/03/17 08:26 09/03/17 12:00 Temperature 98.6 F Pulse Rate 95 H Respiratory Rate 18 Blood Pressure 115/73 Pulse Oximetry 95 94 L GENERAL: A&O x 3 SKIN: Warm and dry. prevena dressing to chest , incision intact to right leg HEAD: Normocephalic. EYES: No scleral icterus. No injection or drainage. NECK: Supple, trachea midline. No JVD or lymphadenopathy. CARDIOVASCULAR: Regular rate and rhythm without murmurs, gallops, or rubs. RESPIRATORY: Breath sounds equal bilaterally. No accessory muscle use. GASTROINTESTINAL: Abdomen soft, non-tender, nondistended. MUSCULOSKELETAL: No cyanosis, or edema. BACK: Nontender without obvious deformity. No CVA tenderness. Labs: Laboratory Results - last 12 hr 09/03/17 09/03/17 09/03/17 03:08 09:01 13:03 Sodium 143 Potassium 4.1 Chloride 108 H Carbon Dioxide 26.7 Anion Gap 8 BUN 18 Creatinine 1.05 Estimated GFR 76 L POC Glucose 173 H 104 Random Glucose 92 Calcium 8.0 L Magnesium 2.8 H Result Diagrams: 09/02/17 09:45 09/03/17 03:08 Telemetry: NSR - Plan (1) S/P CABG (coronary artery bypass graft) Plan: post CABG on ASA, statin , BB , amiodarone , plavix OOb ambulate pulm toileting post episode of Vfib / appreciate input from, Dr Donaldson for possible ICD today (3) HTN (hypertension) Plan: on BB ( increased ) (5) Nicotine dependence with current use Plan: smoking cessation (3) HTN (hypertension) Qualifiers: Hypertension type: essential hypertension Qualified Code(s): I10 - Essential (primary) hypertension
[2017-09-03] MEDS ORDERED: Heparin/NS PF Inj 500 ML ONE (18:04)
--- NOTE | 2017-09-03 19:18 | CATHPROC ---
MyDoc[employer] HIS Report Study Information Study Number Admission Scheduled Start Study Start [id number] Aug 28 2017 6:33PM 09/03/2017 Sep 03 2017 5:26PM [place] Service Electrophysiology Study Admit Source Facility Department Other [facility] - Director Of Strategic Sourcing Physician and Clinical Staff Initial Zari Monreal Casting Carrier Pilo Mcknight,RT(R) Casting Carrier Rossana Perez,POULTRY PICKER Other Anesthesia, END STAPLER Recorder Kisha Good,TRAE Barraganub Hilda Sequeira,RT(R) TECH2 Equipment Time [employer] Officer Description Size Mfg Part Number Used/Scraped [id number] 18:37 [employer] BLANKET,WARM AIR CCL * Used *[id number] 18:37 Struq PACK, CCL CUSTOM * Used *[id number] 18:37 [email or web address] PACER WANG, LIMB * 2530 *[id number] Used [id number] 18:37 [employer] CATHETER, JSN, QUAD FR 5 Used *[id number] 18:37 [employer] CATHE[employer], JSN, QUAD FR 5 Used *[id number] 18:37 [employer] CATHETER, JSN, QUAD FR 5 Used *[id number] 18:37 [employer] CATHETER, JSN, QUAD FR 5 Used *[id number] 18:37 [employer] SHEATH, EPS, FR5 FAST CATH FR 5 Used *[id number] 18:37 [employer] SHE[employer], EPS, FR5 FAST CATH FR 5 Used *[id number] 18:37 [employer] SHEATH, EPS, FR5 FAST CATH FR 5 Used *[id number] 18:37 [employer] SHE[employer], EPS, FR6 FAST CATH FR 6 Used *[id number] History: Allergies Allergy Reaction No Known Allergies History: Risk Factors Hypertension Dyslipidemia Yes Yes Prior PCI Yes Labs Hgb (g/dl) Hct (%) RBC (MIL/MM3) WBC (l/cumm) Platelets (thousands) 11.60-17.00 35.00-51.00 4.00-5.90 4.00-11.00 150.00-450.00 13.0 41 4.4 10.9 132 Glucose (mg/dl) BUN (mg/dl) Creatinine (mg/dl) BUN:Creatinine (1:x) 74.00-106.00 7.00-18.00 0.50-1.30 10.00-20.00 173 18 1.0 18 Na (meq/l) K (meq/l) 136.00-145.00 3.50-5.10 143 4.1 INR (PTT:PT) 0.90-1.10 1.1 Medication Medication Total Dose (Bolus/Oral) Medication Total Dosage/Unit 1% XYLOCAINE 20 mL Medications (Bolus/Oral) Medication Time Given Dosage/Unit Administered By Reason 1% XYLOCAINE 09/03/2017 6:36:00 PM 20 mL Zari Donaldson 20 mL 1% XYLOCAINE given in lab by Zari Donaldson in Right Groin via Subcutaneous. Medication (Drip) Medication Time Given Dosage/Unit Concentration/Unit Diluent (ml) Solution ISUPREL 09/03/2017 6:52:20 PM 4 mcg/min 1 mg 250 NaCl .9 4 mcg/min ISUPREL given in lab by Woody, END STAPLER via Peripheral IV. Pump/Drip Flow = 60 ml/hr using NaCl .9 with a concentration of 1 mg in 250 ml. Ordered by Zari Donaldson. Reason: As per physicians verbal order. Initial Case Assessment Cardiovascular HR Rhythm NIBP Chest Pain [address] st 146/93 0 Edema Present Skin color Skin None Normal Warm Dry Circulatory - Right Pulses Dorsalis Pedis 1 Scale (0,1,2,3,4,d) Circulatory - Left Pulses Dorsalis Pedis 1 Scale (0,1,2,3,4,d) Circulatory - Lower Extremities Color Lower Right Color Lower Left Normal Normal Neurological State Oriented to time-place- Alert Moves all extremities person Respiration - General Respiration Rate SpO2 (%) O2 (lpm) (B/min) 20 99 2 Final Case Assessment Cardiovascular HR Rhythm NIBP Chest Pain [address] st 148/77 0 Edema Present Skin color Skin None Normal Warm Dry Circulatory - Right Pulses Dorsalis Pedis 1 Scale (0,1,2,3,4,d) Circulatory - Left Pulses Dorsalis Pedis 1 Scale (0,1,2,3,4,d) Circulatory - Lower Extremities Color Lower Right Color Lower Left Normal Normal Neurological State Oriented to time-place- Alert Moves all extremities person Respiration - General Respiration Rate SpO2 (%) (B/min) 20 95 Chronological Log Time Study Chronological Log 18:02:35 Patient arrived via Bed. 18:02:38 Patient Name, D.O.B, / Armband Verified By R.N. 18:02:41 Consent signed by the physician and the patient and verified by the Director Of Strategic Sourcing staff. 18:02:42 Pre-op and post- op instructions given; patient acknowledges understanding of instructions. 18:02:43 Verbal Stimulation=2 Physical Stimulation=2 Airway=2 Respiration=2 TOTAL=8. (0=absent, 1=li mited, 2=present) 18:02:44 Anesthesia at bedside. Assumes care of patient. Alanis 18:02:52 Patient has been NPO for More than 6Hrs. 18:02:53 Skin Breakdown-Cbg drsg intact 18:05:12 MD present. 18:10:25 Patient Warmer Placed on the Table. 18:10:26 Disposable Defibrillator Pads Placed On Patient. 18:10:28 Jennifer Prominences Protected 18:10:30 A # 20 IV was noted in the Antecubital (left). Grade = 0 0.9ns kvo 18:10:31 A # 16 IV was noted in the Antecubital (right). Grade = 0 0.9ns kvo 18:10:32 History and physical on the chart or being dictated. Assessment: Initial Case, DU=840 BPM, Rhythm=st, HGFP=422/93 mmhg, Chest Pain=0, Edema=None, [place]=Normal, Skin = Warm, Dry Right Pulses: Selvin Ped=1 Left Pulses: Selvin Ped=1 18:23:33 Lower Right Extremities: Color=Normal Lower Left Extremities: Color=Normal Neurological: State=Alert, Ox3, SMART Respiration: Resp=20 B/min, SpO2=99 %, O2=2 lpm 18:24:34 Table restraints applied according to hospital policy 18:27:26 Reference ECG taken 18:28:20 Bilateral groins prepped with 2% chlorhexidine, and draped after a 3 minute waiting time. Time Out. Correct patient, procedure, procedure equipment, site and side verified with physicia n present. Time 18:35:00 concurred by MD, individual staff and END STAPLER. Time Out #2 - Consents verified, patient in correct position, all results are labled and displa yed, safety precautions 18:35:20 taken, antibiotics administered. Time out concurred by , individual staff and END STAPLER in procedu re 18:35:58 Case Start 18:36:00 20 mL 1% XYLOCAINE given in lab by Zari Donaldson in Right Groin via Subcutaneous. 18:36:22 Vascular access was obtained in the Fem Vein (right). 18:36:27 Vascular access was obtained in the Fem Vein (right). 18:36:28 Vascular access was obtained in the Fem Vein (right). 18:36:29 Vascular access was obtained in the Fem Vein (right). 18:38:18 A SHEATH, EPS, FR6 FAST CATH FR 6 was advanced into the Fem Vein (right) using the Modified Seldinger technique. 18:38:25 A SHEATH, EPS, FR5 FAST CATH FR 5 was advanced into the Fem Vein (right) using the Modified Seldinger technique. 18:38:29 A SHEATH, EPS, FR5 FAST CATH FR 5 was advanced into the Fem Vein (right) using the Modified Seldinger technique. 18:38:31 A SHEATH, EPS, FR5 FAST CATH FR 5 was advanced into the Fem Vein (right) using the Modified Seldinger technique. A CATHETER, JSN, QUAD FR 5 was advanced vis Fem Vein (right) and placed in the CS. Placement wa s visually 18:39:40 confirmed under fluoroscopy. A CATHETER, JSN, QUAD FR 5 was advanced vis Fem Vein (right) and placed in the HIS. Placement w as visually 18:41:27 confirmed under fluoroscopy. A CATHETER, JSN, QUAD FR 5 was advanced vis Fem Vein (right) and placed in the RVA. Placement w as visually 18:42:01 confirmed under fluoroscopy. A CATHETER, JSN, QUAD FR 5 was advanced vis Fem Vein (right) and placed in the HRA. Placement w as visually 18:42:35 confirmed under fluoroscopy. 18:42:58 EPS in progress. 4 mcg/min ISUPREL given in lab by Anesthesia, END STAPLER via Peripheral IV. Pump/Drip Flow = 60 ml/hr using NaCl .9 with 18:52:20 a concentration of 1 mg in 250 ml. Ordered by Zari Donaldson. Reason: As per physicians verbal o rder. 19:02:43 Isuprel off. 19:04:20 All catheter(s) removed without difficulty 19:06:28 Sheaths removed; pressure applied to access sites. 19:09:57 PACU called. Spoke to Steven 19:10:01 Bedside Report will be given. 19:11:26 Case End (Physician broke scrub) 19:12:42 No case complications noted. 19:12:43 Cine recording checked. Assessment: Final Case, ON=511 BPM, Rhythm=st, JEHL=353/77 mmhg, Chest Pain=0, Edema=None, Col or=Normal, Skin = Warm, Dry Right Pulses: Selvin Ped=1 Left Pulses: Selvin Ped=1 19:13:38 Lower Right Extremities: Color=Normal Lower Left Extremities: Color=Normal Neurological: State=Alert, Ox3, SMART Respiration: Resp=20 B/min, SpO2=95 % 19:16:34 CPCU called. Spoke to Diony. 19:16:56 Bedside Report will be given. 19:17:46 Sterile dressing applied to site 19:20:00 Patient moved to stretcher End Study - Contrast Media Used In Study Contrast Total Opened (mL) Total Used (mL) Total Wasted (mL) Unspecified 0 0 0 End Study - Maximum Contrast Load Max Contrast Load (mL) 565.0 End Study - Radiation Exposure Fluoro Time (minutes) 0.9 End Study - Sheaths Sheaths Pulled By Sheath Hold Time (min) Rossana Perez End Study - Patient Disposition Complications Transferred To Interventional Outcome No Telemetry Bed successful
[2017-09-03] MEDS ORDERED: fentaNYL Citrate Inj 100 MCG/2 ML Ampul ONE (19:38)
--- NOTE | 2017-09-03 19:42 | MA ---
cc: Zari Donaldson MD, Hanscy MD Khanna,Tania Granados MD DATE: 09/03/2017 PROCEDURES: Electrophysiology study, CS cannulation, repeat electrophysiology study on Isuprel infusion. Mr. North is a 47 year-old gentleman with history of coronary artery disease, coronary artery bypass grafting, episode of ventricular fibrillation post-CABG who was referred for electrophysiology study and possible device insertion. The risks, the nature and the benefits of the procedure were clearly said to him. Risks include pneumothorax, cardiac perforation, stroke, need for open heart surgery and even . The patient understood and agreed to proceed. PROCEDURE IN DETAIL: After informed consent was obtained, the patient was brought to the EP lab where he was prepped and draped in the usual sterile fashion. Conscious sedation was initiated and maintained throughout the procedure by the anesthesiologist. Once sedation was verified, the right inguinal area was anesthetized with 2% Xylocaine. Using modified Seldinger technique, the right femoral vein was cannulated on 4 occasions and 4 guidewires were advanced. Over the wire, three 5 and a 6-Nepalese Hemaquet were advanced. Then, under fluoroscopic guidance through the 5 and 6-Nepalese Hemaquet, four 5 Nepalese Leeroy curved quadripolar electrophysiology catheters were placed on the his, upper right atrium, coronary sinus and the right ventricular apex. Basic intervals were measured. They were within normal limits. At this point, atrial pacing protocol was performed. Atrial pacing protocol consisted of incremental atrial pacing as well as program stimulation of 410 cycle length and up to 1 extrastimuli delivered. No tachyarrhythmia was induced. Then, ventricular pacing protocol was performed. There was VA conduction, ventricular pacing protocol consisted of incremental ventricular pacing as well as program with 410 cycle length and up to 1 extrastimuli delivered. No tachyarrhythmia was induced. Then Isuprel infusion was initiated. Ventricular pacing protocol was repeated again. No tachyarrhythmia was induced. Post-isuprel no tachyarrhythmia was induced. At that point, the procedure was complete. All catheters were removed. The patient is going to be transferred to the recovery room. No incident to report. The patient tolerated the procedure. Blood loss minimal. 1. ELECTROCARDIOGRAM: At baseline, the patient was in sinus. Post procedure electrocardiogram was unchanged. 2. BASIC INTERVAL: Base cycle length was 580 milliseconds AH at 84 and HV at 46 milliseconds. 3. ATRIAL PACING PROTOCOL: Wenckebach of the node was 370 milliseconds ERP of the node was 600, 220 milliseconds. No tachyarrhythmia was induced. 4. VENTRICULAR PACING PROTOCOL: There was VA conduction. No tachyarrhythmia was induced. CONCLUSION: Negative electrophysiology study for supraventricular tachyarrhythmia. COMMENT AND RECOMMENDATION: Mr. North has a normal ejection fraction. He has an episode of ventricular fibrillation post coronary artery bypass graft. There is a lot of cloudiness around that episode. Apparently, the gentleman was having some episode of hypoxemia also. At this point, there is no strong indication for defibrillator implantation. 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 By implanting a device, that will affect his way of living. At this point, my recommendation is discharge the gentleman home and I would recommend a second opinion at [facility] or [place] for further evaluation. I will discuss the case with the patient and family. MD MOHAMUD Velez/ , 07:14 PM , 07:40 PM
[2017-09-04] MEDS: Metoprolol Tartrate 25 MG Tablet PO SCH (08:53)
[2017-09-04] MEDS: Amiodarone 200 MG Tablet PO SCH (08:53)
[2017-09-04] MEDS: Polyethylene Glycol 3350 17 GM Packet PO SCH (08:53)
[2017-09-04] MEDS: Multivitamin/Minerals Therapeutic Tablet PO SCH (08:53)
[2017-09-04] MEDS: Docusate Sodium 100 MG Capsule PO SCH (08:54)
[2017-09-04] MEDS: Insulin NovoLOG Aspart Correctional Sugar Inj SQ SCH ×3 (09:02→13:28)
--- NOTE | 2017-09-04 10:20 | P.PNCA ---
Subjective Interval history: Feeling better. Physical Exam Vital signs: Vital Signs 09/03/17 11:00 09/03/17 12:00 09/03/17 13:00 Temperature 98.6 F Pulse Rate 95 H 106 H 102 H Respiratory Rate 18 Blood Pressure 115/73 Pulse Oximetry 94 L 09/03/17 14:00 09/03/17 15:00 09/03/17 16:00 Temperature 98.6 F Pulse Rate 100 H 99 H 100 H Respiratory Rate 18 Blood Pressure 118/72 Pulse Oximetry 99 09/03/17 17:00 09/03/17 18:00 09/03/17 20:00 Temperature 98.5 F Pulse Rate 100 H 92 H 104 H Respiratory Rate 19 Blood Pressure 143/86 H Pulse Oximetry 97 09/03/17 20:36 09/03/17 21:00 09/03/17 22:00 Temperature Pulse Rate 102 H 106 H 102 H Respiratory Rate 17 Blood Pressure Pulse Oximetry 98 09/03/17 23:00 09/04/17 00:00 09/04/17 01:00 Temperature 98.5 F Pulse Rate 94 H 94 H 94 H Respiratory Rate 18 Blood Pressure 113/71 Pulse Oximetry 96 97 09/04/17 02:00 09/04/17 03:00 09/04/17 04:05 Temperature 98 F Pulse Rate 92 H 91 H 94 H Respiratory Rate 18 Blood Pressure 114/76 Pulse Oximetry 96 09/04/17 05:00 09/04/17 06:00 09/04/17 07:00 Temperature Pulse Rate 90 92 H 90 Respiratory Rate Blood Pressure Pulse Oximetry Intake & Output 09/03/17 09/04/17 09/04/17 18:59 06:59 18:59 Intake Total 480 / 480 Output Total 1475 / 1475 Balance -995 / -995 Intake: Oral 480 / 480 Output: Urine 1475 / 1475 Other: # Voids 3 Date of Last Bowel Movement 09/03/17 09/03/17 # Bowel Movements 1 - Constitutional no acute distress - Routine HEENT Exam Head: Present: normocephalic, atraumatic Eye: Present: EOMI, PERRL - Routine Neck Exam Present: supple - Routine Respiratory Exam Present: CTA bilaterally - Routine Cardiovascular Exam Present: RRR, S1, S2 - Routine Abdominal Exam Present: soft, normoactive bowel sounds - Routine Extremities Exam Present: full ROM - Routine Skin Exam Present: intact Comments: Groin site soft without bruising or bleeding. - Routine Neurological Exam Present: alert, oriented X3 - Detailed Neurological Exam: Coma Scale Eye Opening: Spontaneous - Routine Psychiatric Exam Present: normal affect - Urinary Catheter Management Indwelling Temp Sensing Catheter Cath placed during this visit: yes, but has since been removed by the nurse Reason for continuing: Decision to DC catheter Insertion date: 08/31/17 Insertion time: 12:39 Removal date: 09/01/17 Removal time: 07:20 Assessment and Plan - Assessment (1) Arrhythmia Code(s): I49.9 - Cardiac arrhythmia, unspecified Status: Acute Plan: Occurred status post CABG. EP study complete with no clear indicator for defibrillator implantation. Cleared for discharge from EP standpoint for evaluation at [facility] per my discussion with Dr. Donaldson. - Plan STEMI - s/p PCI BMS RCA LM disease - CABG 08/31 Cardiomyopathy with EF 45% telemetry August 31 - a few hours post-operatively developed ventricular fibrillation requiring defib x 1 back to NSR. no further arrhythmia. Amiodarone started by CT surgery. Will likely need defibrillator. Will consult EP. titrate BB. amio PO NPO (1) Arrhythmia Qualifiers: Arrhythmia type: ventricular fibrillation Qualified Code(s): I49.01 - Ventricular fibrillation
[2017-09-04] MEDS: Isosorbide Mononitrate 30 MG ER 24HR Tablet (Imdur) PO SCH (11:40)
--- NOTE | 2017-09-04 14:49 | P.DS ---
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 Brought to ED by EMS. Further evaluation revealing inferior wall STEMI. Taken to cardiac cath tech emergently by Dr. Engel and underwent emergent PCI of culprit RCA occlusion with great result. Has residual left main stenosis. PMH: tobacco abuse HTN EF 60% DS: Diagnosis - Discharge Diagnosis (1) S/P CABG (coronary artery bypass graft) Status: Acute (2) ST elevation (STEMI) myocardial infarction involving right coronary artery Status: Acute (3) HTN (hypertension) Status: Chronic (4) Obesity Status: Chronic (5) Nicotine dependence with current use Status: Chronic DS: Medications - Discharge Medications Prescriptions: amiodarone 400 mg PO Q12HR #42 tab aspirin 81 mg PO DAILY #30 tab atorvastatin [Lipitor] 40 mg PO DAILY #30 tab clopidogrel [Plavix] 75 mg PO DAILY #30 tab metoprolol tartrate 50 mg PO BID #60 tab vojjbtks-khdr-RZ-calcium-mins [Thera M Plus (ferrous fumarat)] 1 tab PO DAILY # 30 tab oxycodone-acetaminophen 1 tab PO Q4H PRN #40 tab PRN Reason: Pain Scale 3 To 5 DS: Summary Hospital Course: 08/31/17 surgery 1. Urgent Off-pump Coronary Artery Bypass Grafting x 2 with Left Internal Mammary Artery (BLANTON) to Left Anterior Descending (LAD), reverse saphenous vein graft to the Obtuse Marginal 1 (OM1) branch of the Circumflex artery 2. Right Leg Endoscopic Vein Fancy Gap 3. Intraoperative Vein Mapping. + 3000 balance 09/01 pt had episode of V fib / required defibrillation x 1 / pt received K+ and CA+ last pm amiodarone gtt, immediate post ECG had st elevation in inferior leads, with anterior septal depression ECG improved this am pt extubated this am now on 6 liters transition from IV amiodarone to po additional K+ given will keep pt in CVICU today on ASA, plavix , BB , statin 09/[address] Engel/ consult placed with Dr Donaldson in regards to EP study 2/2 V fib episode electrolytes replaced wean 02 as tolerated/ eval for diuresis pulm toileting chest tube dc without difficultly/ no post PTX transfer to stepdown 09/[address] Donaldson , pt for possible ICD placement limited echo with EF 45% wean off 02 pain controlled , no BM since surgery continue imdur 09/04 neg EP study pt to follow up with Dr Donaldson / possible second opinion at [facility] or [facility] pt NSR on room air no arrhythmia noted since 08/31 continue amiodarone/ plavix - Time Spent with Patient Total time spent providing and/or coordinating discharge services: - Quality: AMI Clinical Trial Participant: No - Quality: VTE Deep Vein Thrombosis/Pulmonary Embolism Present on Admission: Yes Exam Vital signs: Vital Signs 09/03/17 15:00 09/03/17 16:00 09/03/17 17:00 Temperature 98.6 F Pulse Rate 99 H 100 H 100 H Respiratory Rate 18 Blood Pressure 118/72 Pulse Oximetry 99 09/03/17 18:00 09/03/17 20:00 09/03/17 20:36 Temperature 98.5 F Pulse Rate 92 H 104 H 102 H Respiratory Rate 19 17 Blood Pressure 143/86 H Pulse Oximetry 97 98 09/03/17 21:00 09/03/17 22:00 09/03/17 23:00 Temperature 98.5 F Pulse Rate 106 H 102 H 94 H Respiratory Rate 18 Blood Pressure 113/71 Pulse Oximetry 96 09/04/17 00:00 09/04/17 01:00 09/04/17 02:00 Temperature Pulse Rate 94 H 94 H 92 H Respiratory Rate Blood Pressure Pulse Oximetry 97 09/04/17 03:00 09/04/17 04:05 09/04/17 05:00 Temperature 98 F Pulse Rate 91 H 94 H 90 Respiratory Rate 18 Blood Pressure 114/76 Pulse Oximetry 96 09/04/17 06:00 09/04/17 07:00 09/04/17 08:00 Temperature 98 F Pulse Rate 92 H 90 96 H Respiratory Rate 18 Blood Pressure 133/83 Pulse Oximetry 97 09/04/17 09:00 09/04/17 10:00 09/04/17 11:00 Temperature Pulse Rate 100 H 96 H 93 H Respiratory Rate Blood Pressure Pulse Oximetry 09/04/17 12:00 09/04/17 13:00 09/04/17 14:00 Temperature 97.7 F Pulse Rate 90 92 H 96 H Respiratory Rate 18 Blood Pressure 113/80 Pulse Oximetry 96 Intake & Output 09/03/17 09/04/17 09/04/17 18:59 06:59 18:59 Intake Total 480 / 480 Output Total 1475 / 1475 Balance -995 / -995 Weight 112.63 kg Intake: Oral 480 / 480 Output: Urine 1475 / 1475 Other: # Voids 3 Date of Last Bowel Movement 09/03/17 09/03/17 09/04/17 # Bowel Movements 1 - Constitutional no acute distress - Routine HEENT Exam Head: Present: normocephalic - Routine Neck Exam Present: supple, full ROM - Routine Respiratory Exam Present: CTA bilaterally - Routine Cardiovascular Exam Present: RRR, S1, S2 - Routine Abdominal Exam Present: soft, normoactive bowel sounds - Routine Extremities Exam Present: full ROM, pulses intact, normal capillary refill - Routine Skin Exam Present: intact, wounds Comments: prevena dressing intact to chest incision intact to leg - Routine Neurological Exam Present: alert, oriented X3, normal reflexes - Routine Psychiatric Exam Present: normal affect Results Procedures completed during hospitalization: 10/01 1. Urgent Off-pump Coronary Artery Bypass Grafting x 2 with Left Internal Mammary Artery (BLANTON) to Left Anterior Descending (LAD), reverse saphenous vein graft to the Obtuse Marginal 1 (OM1) branch of the Circumflex artery 2. Right Leg Endoscopic Vein Fancy Gap 3. Intraoperative Vein Mapping. 09/03 Electrophysiology study, CS cannulation, repeat electrophysiology study on Isuprel infusion. 1. ELECTROCARDIOGRAM: At baseline, the patient was in sinus. Post procedure electrocardiogram was unchanged. 2. BASIC INTERVAL: Base cycle length was 580 milliseconds AH at 84 and HV at 46 milliseconds. 3. ATRIAL PACING PROTOCOL: Wenckebach of the node was 370 milliseconds ERP of the node was 600, 220 milliseconds. No tachyarrhythmia was induced. 4. VENTRICULAR PACING PROTOCOL: There was VA conduction. No tachyarrhythmia was induced. CONCLUSION: Negative electrophysiology study for supraventricular tachyarrhythmia. COMMENT AND RECOMMENDATION: Mr. North has a normal ejection fraction. He has an episode of ventricular fibrillation post coronary artery bypass graft. There is a lot of cloudiness around that episode. Apparently, the gentleman was having some episode of hypoxemia also. At this point, there is no strong indication for defibrillator implantation. 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 By implanting a device, that will affect his way of living. At this point, my recommendation is discharge the gentleman home and I would recommend a second opinion at [facility] or [facility] for further evaluation. Labs on day of discharge: Labs from last 24 hours 09/04/17 09/04/17 09/03/17 12:46 08:59 23:22 POC Glucose 136 H 134 H 135 H - Impressions ITS Impressions Venous Doppler Study 08/29/17 00:00 CONCLUSION: 1. The study is negative for bilateral lower extremity deep venous thrombosis. Carotid Doppler Study 08/29/17 09:07 CONCLUSION: No significant plaque formation in the carotid arteries. No hemodynamically significant stenosis. Vertebral artery flow antegrade. Lower Extremity Ultrasound 08/29/17 09:07 CONCLUSION: 1. Venous mapping measurements as above. Left greater saphenous vein is enlarged probably from venous incompetence. Chest X-Ray 09/02/17 11:00 CONCLUSION: There is no evidence of pneumothorax. Discharge Plan - Discharge Disposition Patient Disposition: Disch /Home Health Service - Discharge Condition Condition: Good - Discharge Order Discharge Orders: Discharge Order (Routine); Ordered 09/04/17 Ordered By: Ameena Thomas - Physicians Team Primary Care Provider: Darren Bear Attending Provider: Tania Dorado Other Providers: Tania Dorado MD ; Ruperto Clemente MD ; Zari Donaldson MD ; [facility]
== END 2017-09-04 16:36 | disposition home health service (06) ==
LOC: NEPD 17:00 → NEDA 18:29 → HCVI 20:01 → HCPC 09-02 15:11
PROVIDERS: ADMIT Thoracic Surgery (Cardiothoracic Vascular Surgery); ATTEND Thoracic Surgery (Cardiothoracic Vascular Surgery)